=== PATIENT | female | born 1955 | race Caucasian/White ===

== ENCOUNTER → 2016-10-11 | Outpatient (CLI) | payer BC ==
[2016-10-11 14:18] LABS: Non-African American GFR(MDRD) >60 (>60 ml/min/1.73 sqM)
== END | disposition home or self-care (01) ==
LOC: LABWHC1 13:39
PROVIDERS: ATTEND Psychiatry & Neurology Neurology
DX: I60.9 Nontraumatic subarachnoid hemorrhage, unspecified (principal); R41.3 Other amnesia; R51 Headache
CPT/HCPCS: 36415; 82565

== ENCOUNTER → 2016-10-18 | Outpatient (CLI) | payer BC ==
--- NOTE | 2016-10-18 08:46 | MR ---
EXAMINATION TYPE: MR brain wo/w con DATE OF EXAM: 10/18/2016 7:41 AM COMPARISON: NONE at this institution. HISTORY: Subarachnoid hemorrhage follow-up, cluster headache, and memory loss all per order. Headache after head trauma per patient. TECHNIQUE: Multiplanar, multisequence images of the brain and brainstem is performed without and with IV contras t, utilizing 15 mL intravenous MultiHance . FINDINGS: Exam is slightly suboptimal as posttraumatic protocol was not utilized. Diffusion weighted images demonstrate no evidence of a recent infarct or other diffusion abnormality. There is no worri some extra-axial fluid collection. The ventricular system and cisternal spaces are normal in size an d appearance. The brain volume is age appropriate. There are some scattered foci of T2 hyperintensit y seen throughout the white matter bilaterally. I estimates 6-9 scattered lesions. Lesions are nonspe cific in appearance and distribution but are most likely on basis of product of chronic small vessel ischemic change in patient of this age. Midline structures demonstrate normal morphology. The craniocervical junction appears within normal limits. Post contrast images demonstrate no abnormal enhancement. The dural venous sinuses appear pa tent. The visualized sinuses are clear and the globes are intact. IMPRESSION: Mild nonspecific white matter changes most likely on basis of product of chronic small ve ssel ischemic change in patient of this age otherwise unremarkable study.
== END | disposition home or self-care (01) ==
LOC: RADMRIMAIN 06:59
PROVIDERS: ATTEND Psychiatry & Neurology Neurology
DX: S06.6X9D Traumatic subarachnoid hemorrhage with loss of consciousness of unspecified duration, subsequent encounter (principal); R90.82 White matter disease, unspecified
CPT/HCPCS: 70553; A9577

== ENCOUNTER → 2016-11-02 | Outpatient (CLI) | payer BC ==
--- NOTE | 2016-11-02 13:55 | XR ---
EXAMINATION TYPE: XR chest 2V DATE OF EXAM: 11/02/2016 10:06 AM COMPARISON: Prior chest x-ray 02 Mar 2016 HISTORY: Shortness of breath TECHNIQUE: Frontal and lateral views of the chest are obtained. FINDINGS: Retrocardiac density with lucency is compatible with hiatal hernia. Surgical clips are pre sent in the right upper quadrant. Right hemidiaphragm is elevated. No pneumothorax or pleural effusio n. Increased AP diameter chest may be indicative of underlying COPD. Cardiomediastinal silhouette, pu lmonary vascularity and gary are stable. IMPRESSION: No significant interval change. No acute abnormality.
== END | disposition home or self-care (01) ==
LOC: RADXRMAIN 09:42
PROVIDERS: ATTEND Family Medicine
DX: R06.02 Shortness of breath (principal)
CPT/HCPCS: 71020

== ENCOUNTER → 2019-05-14 | Outpatient (CLI) | payer BC ==
--- NOTE | 2019-05-14 13:27 | MM ---
Reason for exam: screening (asymptomatic). Last mammogram was performed 3 years and 8 months ago. History: Patient is postmenopausal. Family history of breast cancer in aunt at age 60 and breast cancer in mother at age 60. Benign excisional biopsy of the right breast, 1989. Physical Findings: A clinical breast exam by your physician is recommended on an annual basis and results should be correlated with mammographic findings. MG 3D Screening Mammo W/Cad Bilateral CC and MLO view(s) were taken. Prior study comparison: September 19, 2015, right breast MG 3d diag mammo w/cad RT. March 16, 2015, right breast MG work up mamm w CAD RT. The breast tissue is heterogeneously dense. This may lower the sensitivity of mammography. There is chronic nodularity bilaterally. There is no discrete abnormality. ASSESSMENT: Benign, BI-RAD 2 RECOMMENDATION: Routine screening mammogram of both breasts in 1 year.
== END | disposition home or self-care (01) ==
LOC: RADMAMWWP 07:44
PROVIDERS: ATTEND Family Medicine
DX: Z12.31 Encounter for screening mammogram for malignant neoplasm of breast (principal)
CPT/HCPCS: 77063; 77067

== ENCOUNTER 2020-12-07 17:52 | Emergency (ER) | payer BC, MEDICARE ==
[2020-12-07 17:57] VITALS: PULSE 71; RESP 18; TEMP 98.6
[2020-12-07] MEDS ORDERED: ACETAMINOPHEN TAB 325 MG TAB PO STA (18:04)
--- NOTE | 2020-12-07 18:23 | ED ---
General Adult HPI - General Chief complaint: Fall Stated complaint: Fall Time Seen by Provider: 12/07/20 17:58 Source: patient Mode of arrival: ambulatory Limitations: no limitations - History of Present Illness Initial comments: 65-year-old female patient presents to the emergency department today for evaluation of right knee pain. Patient states earlier she slipped and fell landing on the knee. States that she had some mild discomfort and stiffness initially but as the day wore on her symptoms worsened. States that she is able to bear weight and bili but it is painful. She takes ibuprofen a couple of hours ago was not really helpful. She denies hitting her head or losing consciousness with the fall. Denies any other injuries. She denies use of anticoagulant or antiplatelet medications. Patient denies any headache, neck pain, back pain, chest pain, shortness of breath, dizziness, weakness, abdominal pain, nausea, vomiting, or difficulties with bowel movements or urination. - Related Data Home Medications Medication Instructions Recorded Confirmed Citalopram Hydrobromide 20 mg PO QAM 05/10/15 04/24/16 [Citalopram HBr] Omeprazole 40 mg PO QAM 05/10/15 04/24/16 Aspirin [Adult Low Dose Aspirin EC] 81 mg PO QAM 04/18/16 04/24/16 Atorvastatin [Lipitor] 40 mg PO QAM 04/18/16 04/24/16 Levothyroxine Sodium [Synthroid] 100 mcg PO QAM 04/18/16 04/24/16 amLODIPine [Norvasc] 5 mg PO QAM 04/18/16 04/24/16 Ibuprofen [Motrin] 800 mg PO RT-Q8H PRN 04/24/16 04/24/16 Allergies Allergy/AdvReac Type Severity Reaction Status Date / Time sulfamethoxazole Allergy Itching Verified 12/07/20 17:57 [From Bactrim] trimethoprim [From Bactrim] Allergy Itching Verified 12/07/20 17:57 Review of Systems ROS Statement: Those systems with pertinent positive or pertinent negative responses have been documented in the HPI. ROS Other: All systems not noted in ROS Statement are negative. Past Medical History Past Medical History: GERD/Reflux, Thyroid Disorder History of Any Multi-Drug Resistant Organisms: None Reported Past Surgical History: Cholecystectomy Past Anesthesia/Blood Transfusion Reactions: Postoperative Nausea & Vomiting (PONV) Past Psychological History: Anxiety Smoking Status: Former smoker Past Alcohol Use History: Occasional Past Drug Use History: None Reported General Exam Limitations: no limitations General appearance: alert, in no apparent distress, other (This is a well- developed, well-nourished adult female patient in no acute distress. Vital signs upon presentation are temperature 98.6F, pulse 71, respirations 18, blood pressure 163/81, pulse ox 100% on room air.) ENT exam: Present: normal exam, normal oropharynx, mucous membranes moist Neck exam: Present: normal inspection, full ROM, other (Nontender, no step-off, no deformity to firm midline palpation of the posterior cervical spine. Full range of motion without pain or limitation.). Absent: tenderness, meningismus, lymphadenopathy Respiratory exam: Present: normal lung sounds bilaterally. Absent: respiratory distress, wheezes, rales, rhonchi, stridor Cardiovascular Exam: Present: regular rate, normal rhythm, normal heart sounds. Absent: systolic murmur, diastolic murmur, rubs, gallop, clicks Extremities exam: Present: full ROM, tenderness (Right anteromedial knee), normal capillary refill, other (There is soft tissue swelling and ecchymosis over the right anterior medial knee. She does exhibit full flexion and extension. Skin is otherwise pink, warm, dry. Cap refill less than 3 seconds. Pedal and posttibial pulses are 2+ and equal bilaterally. No increased pain or laxity with valgus or ). Absent: normal inspection, pedal edema, joint swelling, calf tenderness Back exam: Present: normal inspection. Absent: vertebral tenderness Neurological exam: Present: alert, oriented X3, CN II-XII intact Psychiatric exam: Present: normal affect, normal mood Skin exam: Present: warm, dry, intact, normal color. Absent: rash Course Vital Signs 12/07/20 12/07/20 17:53 18:49 Temperature 98.6 F Pulse Rate 71 71 Respiratory 18 18 Rate Blood Pressure 163/81 147/68 O2 Sat by Pulse 100 97 Oximetry Medical Decision Making - Medical Decision Making 65-year-old female patient presented to the emergency department today for evaluation of right knee pain after soap and fall injury. Physical examination did reveal a contusion to the anterior medial knee. Patient did exhibit full range of motion and extension. No pain or laxity with valgus or varus maneuvers. X-ray was obtained and showed no evidence of fracture or effusion. She did have moderate osteoarthritis. Patient was placed in an Gregg wrap. Did discuss contusion as cause for her symptoms. She is educated regarding rest, ice, elevation. She is instructed to follow-up through primary care physician for recheck in 1-2 days. She is instructed to have repeat x-rays performed in 7-10 days if pain symptoms persist. Return parameters were discussed in detail. She verbalizes understanding and agrees with this plan. Case discussed with my attending Dr. Robledo - Radiology Data Radiology results: report reviewed, image reviewed 3 views of the right knee are obtained. Report was reviewed in its entirety. Impression by Dr. Bains shows moderately severe osteoarthritis in the medial joint space. No fracture seen. Disposition Clinical Impression: Contusion of right knee Disposition: HOME SELF-CARE Condition: Good Instructions (If sedation given, give patient instructions): Contusion in Adults (ED) Additional Instructions: Rest, ice, elevate the right leg. Apply ice 20 minutes at a time at least 4 times daily. Use Gregg wrap for comfort and support. Follow-up with your primary care physician for recheck in 1-2 days. Have repeat x-rays performed in 7-10 days if pain symptoms persist. Return to the emergency department for any new, worsening, or concerning symptoms. Is patient prescribed a controlled substance at d/c from ED?: No Referrals: Melina Rene MD [Primary Care Provider] - 1-2 days Time of Disposition: 18:48
--- NOTE | 2020-12-07 18:31 | XR ---
EXAMINATION TYPE: XR knee complete RT DATE OF EXAM: 12/07/2020 COMPARISON: NONE HISTORY: Slip and fall. Pain. TECHNIQUE: 3 views FINDINGS: There is moderate narrowing of the medial joint space. I see no fracture nor dislocation. T here is a small knee joint effusion. There is no varus deformity. IMPRESSION: Moderately severe osteoarthritis in the medial joint space. No fracture seen.
[2020-12-07 18:50] VITALS: BP 147/68
== END 2020-12-07 18:57 | disposition home or self-care (01) ==
LOC: EC 17:52
DX: S80.01XA Contusion of right knee, initial encounter (principal); K21.9 Gastro-esophageal reflux disease without esophagitis; Z79.1 Long term (current) use of non-steroidal anti-inflammatories (NSAID); F41.9 Anxiety disorder, unspecified; Z87.891 Personal history of nicotine dependence; Z79.82 Long term (current) use of aspirin; Z79.899 Other long term (current) drug therapy; W01.0XXA Fall on same level from slipping, tripping and stumbling without subsequent striking against object, initial encounter
CPT/HCPCS: 99283

== ENCOUNTER 2022-01-09 10:42 | Observation (INO) | payer BC, MEDICARE ==
[2022-01-09] MEDS ORDERED: ASPIRIN 81 MG PO STA (10:57)
--- NOTE | 2022-01-09 11:00 | ED ---
Chest Pain HPI - General Chief Complaint: Chest Pain Stated Complaint: chest pain Time Seen by Provider: 01/09/22 10:53 Source: patient, RN notes reviewed Mode of arrival: ambulatory Limitations: no limitations - History of Present Illness Initial Comments: This a 66-year-old female presents emergency Department with chief complaint chest pain. Patient states this started yesterday afternoon. Patient states it's centralized chest pain states it feels tightness in her chest. She states that it was initially worse with exertion but states that she's having pain at rest. Patient denies any prior cardiac issues including ND, stents. Patient does admit that she had an hyperlipidemia at one point. She does not take any current medications for. Denies hypertension diabetes. Patient had no prior lung disease denies any vomiting diarrhea fever chills. No leg pain or leg swelling. - Related Data Home Medications Medication Instructions Recorded Confirmed Citalopram Hydrobromide 30 mg PO DAILY 05/10/15 01/09/22 [Citalopram HBr] Levothyroxine Sodium [Synthroid] 100 mcg PO MOTUWETHFRSA 04/18/16 01/09/22 Ferrous Sulfate [Feosol] 325 mg PO DAILY 01/09/22 01/09/22 Pantoprazole [Protonix] 40 mg PO DAILY 01/09/22 01/09/22 Allergies Allergy/AdvReac Type Severity Reaction Status Date / Time sulfamethoxazole Allergy Itching Verified 01/09/22 11:07 [From Bactrim] trimethoprim [From Bactrim] Allergy Itching Verified 01/09/22 11:07 Review of Systems ROS Statement: Those systems with pertinent positive or pertinent negative responses have been documented in the HPI. ROS Other: All systems not noted in ROS Statement are negative. Past Medical History Past Medical History: GERD/Reflux, Thyroid Disorder History of Any Multi-Drug Resistant Organisms: None Reported Past Surgical History: Cholecystectomy Past Anesthesia/Blood Transfusion Reactions: Postoperative Nausea & Vomiting (PONV) Past Psychological History: Anxiety Smoking Status: Former smoker Past Alcohol Use History: Occasional Past Drug Use History: None Reported General Exam Limitations: no limitations General appearance: alert, in no apparent distress Head exam: Present: atraumatic, normocephalic, normal inspection Eye exam: Present: normal appearance, PERRL, EOMI. Absent: scleral icterus, conjunctival injection, periorbital swelling ENT exam: Present: normal exam, mucous membranes moist Neck exam: Present: normal inspection, full ROM. Absent: tenderness, meningismus, lymphadenopathy Respiratory exam: Present: normal lung sounds bilaterally. Absent: respiratory distress, wheezes, rales, rhonchi, stridor Cardiovascular Exam: Present: regular rate, normal rhythm, normal heart sounds. Absent: systolic murmur, diastolic murmur, rubs, gallop, clicks GI/Abdominal exam: Present: soft, normal bowel sounds. Absent: distended, tenderness, guarding, rebound, rigid Neurological exam: Present: alert, oriented X3 Skin exam: Present: warm, dry, intact, normal color. Absent: rash Course Vital Signs 01/09/22 01/09/22 10:46 11:48 Temperature 98 F Pulse Rate 82 81 Respiratory 20 16 Rate Blood Pressure 145/78 133/77 O2 Sat by Pulse 97 96 Oximetry Chest Pain MDM - MDM 66 show presented for chest discomfort that started yesterday. Patient had persistent pain. Patient's troponin is negative this time though she has very concerning symptoms. Patient will be admitted for cardiac rule out including echocardiogram, cardiology evaluation Disposition Clinical Impression: Chest pain Disposition: ADMITTED IP TO THIS HOSP Condition: Fair Referrals: None,Stated [Primary Care Provider] - 1-2 days
[2022-01-09 11:19] LABS: Anisocytosis Slight; Basophils % (A) 0 %; Eosinophils # (A) 0.2 k/uL (0-0.7); Eosinophils % (A) 2 %; HGB 10.6 gm/dL (11.4-16.0); Hypochromasia Marked; Lymphocytes # (A) 0.7 k/uL (1.0-4.8); Lymphocytes % (A) 8 %; MCH 19.4 pg (25.0-35.0); MCHC 28.7 g/dL (31.0-37.0); MCV 67.5 fL (80.0-100.0); Mean Platelet Volume 8.1; Microcytosis Marked; Monocytes # (A) 0.3 k/uL (0-1.0); Monocytes % (A) 3 %; Neutrophils # (A) 7.8 k/uL (1.3-7.7); Neutrophils % (A) 86 %; Platelet Count 390 k/uL (150-450); Poikilocytosis Slight; RBC 5.48 m/uL (3.80-5.40); RDW 16.9 % (11.5-15.5)
--- NOTE | 2022-01-09 11:25 | XR ---
EXAMINATION TYPE: XR chest 2V DATE OF EXAM: 01/09/2022 COMPARISON: Chest x-ray 11/02/2016 HISTORY: Chest pain TECHNIQUE: Frontal and lateral views of the chest are obtained. FINDINGS: There is no pleural effusion or pneumothorax seen. Questionable nodular density present in the right upper lobe The cardiac silhouette size is stable. Surgical clips are present in the right upper quadrant. Interstitium is increased. Retrocardiac density with associated lucency likely repres ents hiatal hernia with partial intrathoracic stomach. The osseous structures are intact, as there i s thoracic spondylosis, superior endplate depression noted in the lumbar spine. Surgical clips are pr esent in the right upper quadrant. The aorta is dense. There is elevation of right hemidiaphragm as o n prior. Patient is rotated. IMPRESSION: Possible right upper lobe nodule, follow-up recommended, there is hiatal hernia with par tial intrathoracic stomach. Difficult to exclude interstitial lung disease, additional edema, correla te. There may be some compression fractures lumbar spine.
[2022-01-09 11:33] LABS: Partial Thromboplastin Time 23.5 sec (22.0-30.0)
[2022-01-09 11:43] LABS: ALT 12 U/L (4-34); AST 24 U/L (14-36); African American GFR (CKD) >90 (>60 ml/min/1.73 sqM); Albumin 3.7 g/dL (3.5-5.0); Alkaline Phosphatase 90 U/L (38-126); Anion Gap 6 mmol/L; Blood Urea Nitrogen 5 mg/dL (7-17); Calcium 8.6 mg/dL (8.4-10.2); Carbon Dioxide 32 mmol/L (22-30); Chloride 102 mmol/L (98-107); Glucose 113 mg/dL (74-99); Magnesium 1.8 mg/dL (1.6-2.3); Non-African American GFR(CKD) 86 (>60 ml/min/1.73 sqM); Potassium 3.8 mmol/L (3.5-5.1); Sodium 140 mmol/L (137-145); Total Bilirubin 0.5 mg/dL (0.2-1.3); Total Protein 7.3 g/dL (6.3-8.2)
[2022-01-09 11:59] LABS: INR 1.1 (<1.2); Prothrombin Time 11.3 sec (9.0-12.0)
[2022-01-09] MEDS ORDERED: NITROGLYCERIN SL TABS 0.4 MG TAB SUBLINGUAL PRN (12:54)
[2022-01-09] MEDS: LEVOTHYROXINE 100 MCG TAB PO SCH (13:41)
--- NOTE | 2022-01-09 13:49 | P.HPIM ---
History of Present Illness H&P Date: 01/09/22 History of Presenting Illness: Patient is a very pleasant 66-year-old female with a past medical history of hypothyroidism, GERD, and anxiety. She presented to the emergency department with a chief complaint of chest pain. Patient reports she has been experiencing intermittent chest pain since yesterday. She describes this pain to her mid sternal chest as a "pounding-like" sensation and denies any radiation of this pain. Patient reports this pain has came on with exertion with the initial time she noticed it being just after walking up her basement steps but also states that it has came on at rest as she reports last night she was lying in bed and again felt this pain. Patient states today she felt the pain for a third time Lucy L she was doing was walking around her house. Patient states that her daughter became very concerned and wanted her to come to the emergency department for evaluation. Patient states in addition to this pain she has noticed that she has been having shortness of breath with exertion over the past week and also reports feeling palpitations and lightheadedness when she feels this pain. She denies having any headache, shortness of breath at rest, abdominal pain, nausea, vomiting, diaphoresis, fevers, or experiencing any numbness/tingling/weakness/swelling in her extremities. Patient denies having a cardiac history and denies family history of sudden cardiac . In the emergency department patient was seen and fully evaluated. EKG was completed revealing sinus rhythm at 73 bpm with occasional PVCs and an incomplete right bundle branch block. Chest x-ray revealing possible right upper lobe nodule, hiatal hernia with partial intrathoracic stomach, with possible compression fractures of lumbar spine. Labs revealing microcytic microchromic anemia with hemoglobin of 10.6, currently at baseline and elevated bicarb of 32. Troponin negative at less than 0.012. Patient has been admitted under our services with consultation to cardiology and general surgery. Review of systems: Pertinent positives and negatives as discussed in HPI, a complete review of systems was performed and all other systems are negative. Physical exam: Vital signs reviewed and stable. General: Nontoxic, no distress and appears stated age. Derm: Skin warm and dry, normal coloration for ethnicity. Head: Atraumatic, normocephalic and symmetric. Eyes: EOMs intact, no lid lag, and anicteric sclera Mouth: no lip lesions, mucus membranes moist Cardiovascular: regular rate and rhythm with normal S1S2, systolic murmur, positive posterior tibial pulses bilaterally, and cap refill < 2 seconds. Lungs: Respirations even, regular, and unlabored on room air. Lungs CTA bilaterally, no rhonchi, no rales, no wheezing, and no accessory muscle usage. Abdominal: soft, nontender to palpation, no guarding, no appreciable organomegaly Ext: ROM intact. No gross muscle atrophy, no edema, no contractures Neuro: Speech clear, face symmetrical and CN II-XII grossly intact with no noted focal neuro deficits Psych: Alert and oriented to person, place, time, and situation. Appropriate and pleasant affect. Assessment and Plan of Care: Atypical Chest pain, rule out acute coronary event -Cardiology consult, appreciate further recommendations -Gen. surgery consulted secondary to findings of hiatal hernia with partial intrathoracic stomach -Telemetry monitoring -Trend troponins -Cardiac diet, NPO at midnight -Lipid profile with a.m. labs. -Echocardiogram Hypothyroidism -Continue daily medication regimen with level thyroxine GERD -Continue daily medication regimen with Protonix Depression and anxiety -Continue daily medication regimen with Celexa 30 mg each morning. The patient is admitted with an anticipated less than 2 midnight stay for evaluation of chest pain CODE STATUS: Full code DVT prophylaxis: Heparin Discussed with: Patient, patient's daughter, and RN Anticipated discharge date: 1-[address]: Home A total of 40 minutes was spent on the care of this complex patient more than 50% of the time was spent in counseling and care coordination. Past Medical History Past Medical History: GERD/Reflux, Thyroid Disorder History of Any Multi-Drug Resistant Organisms: None Reported Past Surgical History: Cholecystectomy Past Anesthesia/Blood Transfusion Reactions: Postoperative Nausea & Vomiting (PONV) Past Psychological History: Anxiety Smoking Status: Former smoker Past Alcohol Use History: Occasional Past Drug Use History: None Reported Medications and Allergies Home Medications Medication Instructions Recorded Confirmed Type Citalopram Hydrobromide 30 mg PO DAILY 05/10/15 01/09/22 History [Citalopram HBr] Levothyroxine Sodium [Synthroid] 100 mcg PO MOTUWETHFRSA 04/18/16 01/09/22 History Ferrous Sulfate [Feosol] 325 mg PO DAILY 01/09/22 01/09/22 History Pantoprazole [Protonix] 40 mg PO DAILY 01/09/22 01/09/22 History Allergies Allergy/AdvReac Type Severity Reaction Status Date / Time sulfamethoxazole Allergy Itching Verified 01/09/22 11:07 [From Bactrim] trimethoprim [From Bactrim] Allergy Itching Verified 01/09/22 11:07 Physical Exam Vitals: Vital Signs Temp Pulse Resp BP Pulse Ox 01/09/22 11:48 81 16 133/77 96 01/09/22 10:46 98 F 82 20 145/78 97 Intake and Output 01/08/22 01/09/22 01/09/22 22:59 06:59 14:59 Other: Weight 68.039 kg Results CBC & Chem 7: 01/09/22 11:09 01/09/22 11:09 Labs: Abnormal Lab Results - Last 24 Hours (Table) 01/09/22 01/09/22 Range/Units 11:09 11:09 RBC 5.48 H (3.80-5.40) m/uL Hgb 10.6 L (11.4-16.0) gm/dL MCV 67.5 L (80.0-100.0) fL MCH 19.4 L (25.0-35.0) pg MCHC 28.7 L (31.0-37.0) g/dL RDW 16.9 H (11.5-15.5) % Neutrophils # 7.8 H (1.3-7.7) k/uL Lymphocytes # 0.7 L (1.0-4.8) k/uL Carbon Dioxide 32 H (22-30) mmol/L BUN 5 L (7-17) mg/dL Glucose 113 H (74-99) mg/dL
--- NOTE | 2022-01-09 14:46 | P.CRDCN ---
History of Present Illness Consult date: 01/09/22 History of present illness: HISTORY OF PRESENT ILLNESS: This is a 66 year old female with a past medical history significant for anxiety, hypothyroidism, and GERD. Patient follows in the office with Dr. Caceres. We have been asked to see the patient in consultation for chest pain. Patient examined at the bedside. Patient states over the past week she has been feeling short of breath. She states yesterday she began having some chest pressure. The pain is located in the middle of her chest. She denied any radiation of the pain. She states the discomfort would last for about 5 or 10 minutes and then go away on its own. She states she had approximately 3 or 4 episodes of chest pressure since yesterday morning. She reports having this discomfort with exertion and also at rest. She denies any increased pain with deep inspiration. She denies discomfort with chest wall palpation. At the time of my examination, the patient denies any chest pain or pressure. * EKG reveals sinus mechanism with incomplete right bundle branch block * Chest xray possible right upper lobe nodule. Follow-up recommended. Hiatal hernia with partial intrathoracic stomach. Difficult to exclude interstitial lung disease. * Laboratory data: WBC 9.0. Hemoglobin 10.6. Platelet count 390. Sodium 140. Potassium 3.8. BUN 5. Creatinine 0.73. Troponin negative 1. * Current home cardiac medications include none * Most recent echocardiogram obtained in November 2020 revealed ejection fraction 55%, moderate aortic stenosis, mild MR, mild TR * Patient underwent stress echo in November 2020 which was negative for ischemia * Cardiac catheterization history: 2016 revealing normal coronary arteries and normal left ventricular size and systolic function REVIEW OF SYSTEMS: At the time of my exam: CONSTITUTIONAL: Denies fever or chills. HEENT: Denies blurred vision, vision changes, or eye pain. Denies hemoptysis CARDIOVASCULAR: Denies chest pain. Denies orthopnea. Denies PND. Denies palpitations RESPIRATORY: Denies shortness of breath. GASTROINTESTINAL: Denies abdominal pain. Denies nausea or vomiting. HEMATOLOGIC: Denies bleeding disorders. GENITOURINARY: Denies any blood in urine. SKIN: Denies pruitis. Denies rash. PHYSICAL EXAM: VITAL SIGNS: Reviewed. GENERAL: Well-developed in no acute distress. HEENT: Head is normocephalic. Pupils are equal, round. Sclerae anicteric. Mucous membranes of the mouth are moist. Neck supple. No JVD or thyromegaly LUNGS: Respirations even and unlabored. Lungs essentially clear to auscultation bilaterally. HEART: Regular rate and rhythm. S1 and S2 heard. Systolic murmur noted. ABDOMEN: Soft. Nondistended. Nontender. EXTREMITIES: Normal range of motion. No clubbing or cyanosis. Peripheral pulses intact. No lower extremity edema NEUROLOGIC: Awake and alert. Oriented x 3. ASSESSMENT: Chest pain Valvular heart disease Anxiety Hypothyroidism GERD PLAN: Obtain 2-D echo to assess chronic structure and function Trend troponins NPO at midnight Further recommendations pending patient's course Nurse practitioner note has been reviewed by physician. Signing provider agrees with the documented findings, assessment, and plan of care. Past Medical History Past Medical History: GERD/Reflux, Thyroid Disorder History of Any Multi-Drug Resistant Organisms: None Reported Past Surgical History: Cholecystectomy Past Anesthesia/Blood Transfusion Reactions: Postoperative Nausea & Vomiting (PONV) Past Psychological History: Anxiety Smoking Status: Former smoker Past Alcohol Use History: Occasional Past Drug Use History: None Reported Medications and Allergies Home Medications Medication Instructions Recorded Confirmed Type Citalopram Hydrobromide 30 mg PO DAILY 05/10/15 01/09/22 History [Citalopram HBr] Levothyroxine Sodium [Synthroid] 100 mcg PO MOTUWETHFRSA 04/18/16 01/09/22 History Ferrous Sulfate [Feosol] 325 mg PO DAILY 01/09/22 01/09/22 History Pantoprazole [Protonix] 40 mg PO DAILY 01/09/22 01/09/22 History Allergies Allergy/AdvReac Type Severity Reaction Status Date / Time sulfamethoxazole Allergy Itching Verified 01/09/22 11:07 [From Bactrim] trimethoprim [From Bactrim] Allergy Itching Verified 01/09/22 11:07 Physical Exam Vitals: Vital Signs Temp Pulse Resp BP Pulse Ox 01/09/22 11:48 81 16 133/77 96 01/09/22 10:46 98 F 82 20 145/78 97 Intake and Output 01/08/22 01/09/22 01/09/22 22:59 06:59 14:59 Other: Weight 68.039 kg Results 01/09/22 11:09 01/09/22 11:09 Cardiac Enzymes 01/09/22 01/09/22 Range/Units 11:09 11:09 AST 24 (14-36) U/L Troponin I <0.012 (0.000-0.034) ng/mL Coagulation 01/09/22 Range/Units 11:09 PT 11.3 (9.0-12.0) sec APTT 23.5 (22.0-30.0) sec CBC 01/09/22 Range/Units 11:09 WBC 9.0 (3.8-10.6) k/uL RBC 5.48 H (3.80-5.40) m/uL Hgb 10.6 L (11.4-16.0) gm/dL Hct 37.0 (34.0-46.0) % Plt Count 390 (150-450) k/uL Comprehensive Metabolic Panel 01/09/22 Range/Units 11:09 Sodium 140 (137-145) mmol/L Potassium 3.8 (3.5-5.1) mmol/L Chloride 102 (98-107) mmol/L Carbon Dioxide 32 H (22-30) mmol/L BUN 5 L (7-17) mg/dL Creatinine 0.73 (0.52-1.04) mg/dL Glucose 113 H (74-99) mg/dL Calcium 8.6 (8.4-10.2) mg/dL AST 24 (14-36) U/L ALT 12 (4-34) U/L Alkaline Phosphatase 90 (38-126) U/L Total Protein 7.3 (6.3-8.2) g/dL Albumin 3.7 (3.5-5.0) g/dL Current Medications Generic Name Dose Route Start Last Admin Trade Name Freq PRN Reason Stop Dose Admin Aspirin 325 mg 01/10/22 09:00 Aspirin 325 Mg Tab PO DAILY RHETT Citalopram Hydrobromide 30 mg 01/10/22 09:00 Citalopram Hydrobromide 10 Mg Tab PO DAILY RHETT Ferrous Sulfate 325 mg 01/10/22 09:00 Ferrous Sulfate 325 Mg Tab PO DAILY RHETT Levothyroxine Sodium 100 mcg 01/09/22 13:00 Levothyroxine 100 Mcg Tab PO [id number] RHETT Nitroglycerin 0.4 mg 01/09/22 12:54 Nitroglycerin Sl Tabs 0.4 Mg Tab SUBLINGUAL Q5M PRN Chest Pain Pantoprazole Sodium 40 mg 01/10/22 07:30 Pantoprazole 40 Mg Tablet PO [id number] RHETT Intake and Output 01/08/22 01/09/22 01/09/22 22:59 06:59 14:59 Other: Weight 68.039 kg Patient Weight 01/10/22 06:59 Weight 68.039 kg 01/09/22 11:09 01/09/22 11:09
--- NOTE | 2022-01-09 19:13 | ECHOF ---
Referral Reason: MEASUREMENTS -------- HEIGHT: 152.4 cm WEIGHT: 68.0 kg BP: 133/63 RVIDd: 2.4 cm (< 3.3) IVSd: 1.1 cm (0.6 - 1.1) LVIDd: 4.4 cm (3.9 - 5.3) LVPWd: 1.5 cm (0.6 - 1.1) IVSs: 1.5 cm LVIDs: 3.1 cm LVPWs: 1.5 cm LAESV Index (A-L): 42.73 ml/m Ao Diam: 2.9 cm (2.0 - 3.7) AV Cusp: 1.3 cm (1.5 - 2.6) LA Diam: 3.4 cm (2.7 - 3.8) MV EXCURSION: 17.802 mm (> 18.000) MV EF SLOPE: 99 mm/s (70 - 150) EPSS: 1.1 cm MV E Jerrell: 1.00 m/s MV DecT: 172 ms MV A Jerrell: 0.73 m/s MV E/A Ratio: 1.37 AV maxP.51 mmHg AV meanP.78 mmHg AR PHT: 380 ms RAP: 5.00 mmHg RVSP: 39.83 mmHg FINDINGS -------- Sinus rhythm. This was a technically adequate study. The left ventricular size is normal. There is borderline concentric left ventricular hypertrophy. Overall left ventricular systolic function is normal with, an EF between 55 - 60 %. The diastolic filling pattern indicates impaired relaxation 21.28. The right ventricle is normal in size. LA is severely dilated >40 ml/m2 The right atrial size is normal. Interatrial and interventricular septum intact. Aortic valve is trileaflet and is mildly thickened. Trace amount of aortic regurgitation. There is mild aortic stenosis present. The maximum velocity across the aortic valve is 2.72m/s. Peak/me an gradient across the Aortic Valve is 29.51mmHg / 14.78mmHg. The mitral valve leaflets are mildly thickened. Mild mitral regurgitation is present. The tricuspid valve appears structurally normal. Mild tricuspid regurgitation present. There is m ild pulmonary hypertension. The right ventricular systolic pressure, as measured by Doppler, is 39. 83mmHg. Trace/mild (physiologic) pulmonic regurgitation. The aortic root size is normal. IVC Not well visulized. There is no pericardial effusion. CONCLUSIONS -------- 1. There is borderline concentric left ventricular hypertrophy. 2. Overall left ventricular systolic function is normal with, an EF between 55 - 60 %. 3. The diastolic filling pattern indicates impaired relaxation 21.28.. 4. LA is severely dilated >40 ml/m2 5. Trace amount of aortic regurgitation. 6. There is mild aortic stenosis present. 7. Mild mitral regurgitation is present. 8. Mild tricuspid regurgitation present. 9. There is mild pulmonary hypertension. HAND WRAPPER OPERATOR: Zena Maher RDCS
[2022-01-10] MEDS: HEPARIN SODIUM,PORCINE/PF 5,000 UNIT/0.5 ML SYRINGE SQ SCH ×3 (01:56→15:44)
[2022-01-10] MEDS: PANTOPRAZOLE 40 MG TABLET PO SCH (05:34)
[2022-01-10] MEDS: LEVOTHYROXINE 100 MCG TAB PO SCH (05:34)
[2022-01-10] MEDS ORDERED: ASPIRIN 325 MG TAB PO SCH (09:00)
[2022-01-10] MEDS: ASPIRIN 81 MG PO SCH (09:51)
[2022-01-10] MEDS: CITALOPRAM HYDROBROMIDE 10 MG TAB PO SCH (09:52)
[2022-01-10] MEDS: FERROUS SULFATE 325 MG TAB PO SCH (09:52)
[2022-01-10 10:03] LABS: Chol/HDL Ratio 3.53 Ratio; LDL Cholesterol,Calculated 89.1 mg/dL (0.0-131.0)
--- NOTE | 2022-01-10 12:47 | P.PN ---
Subjective This is a 66 year old female with a past medical history significant for anxiety, hypothyroidism, and GERD. Patient follows in the office with Dr. Jeramy mariscal. We have been asked to see the patient in consultation for chest pain. Patient examined at the bedside. Patient states over the past week she has been feeling short of breath. She states yesterday she began having some chest pressure. The pain is located in the middle of her chest. She denied any radiation of the pain. She states the discomfort would last for about 5 or 10 minutes and then go away on its own. She states she had approximately 3 or 4 episodes of chest pressure since yesterday morning. She reports having this discomfort with exertion and also at rest. She denies any increased pain with deep inspiration. She denies discomfort with chest wall palpation. * Patient underwent stress echo in November 2020 which was negative for ischemia * Cardiac catheterization history: 2015 revealing normal coronary arteries and normal left ventricular size and systolic function * EKG revealed sinus mechanism with incomplete right bundle branch block. * Chest xray possible right upper lobe nodule. Follow-up recommended. Hiatal hernia with partial intrathoracic stomach. Difficult to exclude interstitial lung disease. * Troponin negative x 3. * Echocardiogram revealed an EF 5560%, mild aortic stenosis, mild mitral regurgitation, mild tricuspid regurgitation 01/10/2022 Patient seen and examined, no acute distress. No chest pain. No shortness of breath. BP 130/60 HR 66, afebrile 97% on room air. Echocardiogram revealed an EF 5560%, mild aortic stenosis, mild mitral regurgitation, mild tricuspid regurgitation PHYSICAL EXAM: VITAL SIGNS: Reviewed. GENERAL: Well-developed in no acute distress. HEENT: Neck supple. No JVD LUNGS: Respirations even and unlabored. Lungs essentially clear to auscultation bilaterally. HEART: Regular rate and rhythm. S1 and S2 heard. Systolic murmur noted. ABDOMEN: Soft. Nondistended. Nontender. EXTREMITIES: Normal range of motion. No clubbing or cyanosis. Peripheral pulses intact. No lower extremity edema NEUROLOGIC: Awake and alert. Oriented x 3. ASSESSMENT: Chest pain, atypical, acute coronary syndrome has been ruled out Mild aortic stenosis Anxiety Hypothyroidism GERD PLAN: An acute coronary event has been ruled out with no EKG evidence of ischemia and negative cardiac enzymes. Perform Stress Echo test to assess for stress induced cardiac ischemia. If abnormal will consider coronary angiography. If stress test is normal, ok to discharge from a cardiology perspective. Nurse practitioner note has been reviewed by physician. Signing provider agrees with the documented findings, assessment, and plan of care. Objective - Vital Signs Vital signs: Vital Signs Temp 98.2 F 01/10/22 07:52 Pulse 65 01/10/22 08:00 Resp 16 01/10/22 07:52 BP 135/63 01/10/22 07:52 Pulse Ox 95 01/10/22 07:52 Intake & Output 01/09/22 01/10/22 01/10/22 18:59 06:59 18:59 Weight 68.039 kg 68.039 kg Other: Voiding Method Toilet - Labs CBC & Chem 7: 01/09/22 11:09 01/09/22 11:09 Labs: Abnormal Lab Results - Last 24 Hours (Table) 01/09/22 01/09/22 Range/Units 11:09 11:09 RBC 5.48 H (3.80-5.40) m/uL Hgb 10.6 L (11.4-16.0) gm/dL MCV 67.5 L (80.0-100.0) fL MCH 19.4 L (25.0-35.0) pg MCHC 28.7 L (31.0-37.0) g/dL RDW 16.9 H (11.5-15.5) % Neutrophils # 7.8 H (1.3-7.7) k/uL Lymphocytes # 0.7 L (1.0-4.8) k/uL Carbon Dioxide 32 H (22-30) mmol/L BUN 5 L (7-17) mg/dL Glucose 113 H (74-99) mg/dL
--- NOTE | 2022-01-10 13:13 | P.PN ---
Subjective Progress Note Date: 01/10/22 Hospital course: Patient is a very pleasant 66-year-old female with a past medical history of hypothyroidism, GERD, and anxiety. She presented to the emergency department on 01/09/22 with a chief complaint of chest pain. Patient reported she has been experiencing intermittent chest pain 2 days. She described this pain to her mid sternal chest as a "pounding-like" sensation and denied any radiation of this pain. Patient reported this pain came on with exertion with the initial time she noticed it being just after walking up her basement steps but also stated that it has also came on at rest as she reports last night she was lying in bed and again felt this pain. Patient reported that she then felt the pain for a third time as she was walking around her house and realized that something was going on. Patient stated that her daughter became very concerned and wanted her to come to the emergency department for evaluation. Patient also reported in addition to this pain she has noticed that she has been having shortness of breath with exertion over the past week and also reports feeling palpitations and lightheadedness when she feels this pain. Patient denies having a cardiac history and denies family history of sudden cardiac . In the emergency department patient was seen and fully evaluated. EKG was completed revealing sinus rhythm at 73 bpm with occasional PVCs and an incomplete right bundle branch block. Chest x-ray revealing possible right upper lobe nodule, hiatal hernia with partial intrathoracic stomach, with possible compression fractures of lumbar spine. Labs revealing microcytic microchromic anemia with hemoglobin of 10.6, currently at baseline and elevated bicarb of 32. Initial Troponin negative at less than 0.012. Patient was admitted under our services to observation unit with consultation to cardiology and general surgery. She was monitored overnight and troponins were trended all less than 0.0123 draws. Lipid profile unremarkable. Echocardiogram completed revealing an EF of 55-60% with a severely dilated left atrium, mild aortic stenosis, mild pulmonary hypertension, and mild mitral and tricuspid regurgitation. Cardiology evaluated and plans for stress echo to assess for stress-induced cardiac ischemia. General surgery evaluated and secondary to newly diagnosed hiatal hernia with intrathoracic stomach, pt has been transferred to inpatient and tentative plan is to have pt undergo EGD tomorrow morning with Dr. Davis for futher evaluation. Physical exam: Vital signs reviewed and stable. General: Nontoxic, no distress and appears stated age. Derm: Skin warm and dry, normal coloration for ethnicity. Head: Atraumatic, normocephalic and symmetric. Eyes: EOMs intact, no lid lag, and anicteric sclera Mouth: no lip lesions, mucus membranes moist Cardiovascular: regular rate and rhythm with normal S1S2, systolic murmur, positive posterior tibial pulses bilaterally, and cap refill < 2 seconds. Lungs: Respirations even, regular, and unlabored on room air. Lungs CTA bilaterally, no rhonchi, no rales, no wheezing, and no accessory muscle usage. Abdominal: soft, nontender to palpation, no guarding, no appreciable organomegaly Ext: ROM intact. No gross muscle atrophy, no edema, no contractures Neuro: Speech clear, face symmetrical and CN II-XII grossly intact with no noted focal neuro deficits Psych: Alert and oriented to person, place, time, and situation. Appropriate and pleasant affect. Assessment and Plan of Care: Atypical Chest pain, rule out acute coronary event -Cardiology consult, appreciate further recommendations -Gen. surgery consulted secondary to findings of hiatal hernia with partial intrathoracic stomach -Telemetry monitoring -Trend troponins -Cardiac diet, NPO at midnight -Lipid profile with a.m. labs. -Echocardiogram Hypothyroidism -Continue daily medication regimen with level thyroxine GERD -Continue daily medication regimen with Protonix Depression and anxiety -Continue daily medication regimen with Celexa 30 mg each morning. CODE STATUS: Full code DVT prophylaxis: Heparin Discussed with: Patient, patient's daughter, and RN Anticipated discharge date: Clinical course to determine Anticipated discharge place: Home A total of 37 minutes was spent on the care of this complex patient more than 50% of the time was spent in counseling and care coordination. Objective - Vital Signs Vital signs: Vital Signs Temp 98.2 F 01/10/22 07:52 Pulse 65 01/10/22 08:00 Resp 16 01/10/22 07:52 BP 135/63 01/10/22 07:52 Pulse Ox 95 01/10/22 07:52 Intake & Output 01/09/22 01/10/22 01/10/22 18:59 06:59 18:59 Weight 68.039 kg 68.039 kg Other: Voiding Method Toilet - Labs CBC & Chem 7: 01/09/22 11:09 01/09/22 11:09 Labs: Abnormal Lab Results - Last 24 Hours (Table) 01/09/22 01/09/22 Range/Units 11:09 11:09 RBC 5.48 H (3.80-5.40) m/uL Hgb 10.6 L (11.4-16.0) gm/dL MCV 67.5 L (80.0-100.0) fL MCH 19.4 L (25.0-35.0) pg MCHC 28.7 L (31.0-37.0) g/dL RDW 16.9 H (11.5-15.5) % Neutrophils # 7.8 H (1.3-7.7) k/uL Lymphocytes # 0.7 L (1.0-4.8) k/uL Carbon Dioxide 32 H (22-30) mmol/L BUN 5 L (7-17) mg/dL Glucose 113 H (74-99) mg/dL
--- NOTE | 2022-01-10 14:30 | ECHOS ---
STRESS ECHOCARDIOGRAM INDICATIONS: Chest pain BASELINE HEART RATE: 64 BASELINE BLOOD PRESSURE: 115/49 MAXIMUM HEART RATE: 136 MAXIMUM BLOOD PRESSURE: 185/58 85% MPHR: 131 100% MPHR: 154 METS: 6 MAXIMUM STAGE REACHED: II TOTAL EXERCISE TIME: 4:31 CLINICAL INFORMATION: Baseline rhythm is sinus mechanism, rate of 64, borderline left axis deviation, poor R- wave progression, first-degree AV block. Baseline blood pressure 115/49 mmHg. Patient exercised on Jason protocol for 4 minutes 31 seconds, reaching a peak rate of 130 beats per minute, which is equal to 88% of maximum predicted heart rate. Peak blood pressure 185/58 mmHg. Test was terminated secondary to fatigue. There was no chest pain. Electrocardiograph monitoring revealed no evidence of diagnostic ischemic ST deviation. FINDINGS: Baseline echocardiogram revealed normal wall thickness and motion. At peak exercise there was normal wall motion augmentation with no hypokinesis or dyskinesis. CONCLUSION: 1. Decreased exercise tolerance. 2. Normal electrocardiographic response to exercise. 3. Normal stress echocardiogram with no evidence of stress-induced ischemia. MMODL / IJN: [id number] /
--- NOTE | 2022-01-10 17:03 | P.GSCN ---
History of Present Illness Consult date: 01/10/22 Reason for Consult: Hiatal hernia, dysphagia, chest pain History of present illness: This is a 66-year-old female with complaints of some epigastric and chest pain. Patient's chest x-ray shows evidence of a intrathoracic stomach and hiatal he rnia. Patient describes history of some dysphagia and acid reflux. Past Medical History Past Medical History: GERD/Reflux, Thyroid Disorder History of Any Multi-Drug Resistant Organisms: None Reported Past Surgical History: Cholecystectomy Past Anesthesia/Blood Transfusion Reactions: Postoperative Nausea & Vomiting (PONV) Past Psychological History: Anxiety Smoking Status: Former smoker Past Alcohol Use History: Occasional Past Drug Use History: None Reported Medications and Allergies Home Medications Medication Instructions Recorded Confirmed Type Citalopram Hydrobromide 30 mg PO DAILY 05/10/15 01/09/22 History [Citalopram HBr] Levothyroxine Sodium [Synthroid] 100 mcg PO MOTUWETHFRSA 04/18/16 01/09/22 History Ferrous Sulfate [Feosol] 325 mg PO DAILY 01/09/22 01/09/22 History Pantoprazole [Protonix] 40 mg PO DAILY 01/09/22 01/09/22 History Allergies Allergy/AdvReac Type Severity Reaction Status Date / Time sulfamethoxazole Allergy Itching Verified 01/09/22 11:07 [From Bactrim] trimethoprim [From Bactrim] Allergy Itching Verified 01/09/22 11:07 Surgical - Exam Vital Signs Temp Pulse Resp BP Pulse Ox 98 F 82 20 145/78 97 01/09/22 10:46 01/09/22 10:46 01/09/22 10:46 01/09/22 10:46 01/09/22 10:46 - General well developed, well nourished, no distress - Eyes PERRL - ENT normal pinna - Neck no masses - Respiratory normal expansion - Cardiovascular Rhythm: regular - Abdomen Abdomen: soft, non tender Results - Labs 01/09/22 11:09 01/09/22 11:09 Diabetes panel 01/10/22 Range/Units 05:10 Triglycerides 124.00 (0.00-149.00) mg/dL HDL Cholesterol 45.10 (40.00-60.00) mg/dL Assessment and Plan Assessment: Hiatal hernia with partial intrathoracic stomach. Patient will undergo EGD in the a.m.
[2022-01-11] MEDS: HEPARIN SODIUM,PORCINE/PF 5,000 UNIT/0.5 ML SYRINGE SQ SCH ×3 (00:31→17:04)
[2022-01-11 06:11] VITALS: RESP 18
[2022-01-11] MEDS: PANTOPRAZOLE 40 MG TABLET PO SCH (06:11)
[2022-01-11] MEDS: LEVOTHYROXINE 100 MCG TAB PO SCH (06:12)
[2022-01-11] MEDS ORDERED: LACTATED RINGERS 1,000 ML IV SCH (06:51)
[2022-01-11] MEDS ORDERED: LIDOCAINE 1% (10MG/ML) FOR IV START INTRADERMA PRN (06:51)
[2022-01-11] MEDS: FERROUS SULFATE 325 MG TAB PO SCH (09:01)
[2022-01-11] MEDS: CITALOPRAM HYDROBROMIDE 10 MG TAB PO SCH (09:01)
[2022-01-11] MEDS: ASPIRIN 81 MG PO SCH (09:01)
[2022-01-11 11:23] VITALS: BP 115/56; TEMP 98.2
--- NOTE | 2022-01-11 13:04 | P.PN ---
Subjective Progress Note Date: 01/11/22 Hospital course: Patient is a very pleasant 66-year-old female with a past medical history of hypothyroidism, GERD, and anxiety. She presented to the emergency department on 01/09/22 with a chief complaint of chest pain. Patient reported she has been experiencing intermittent chest pain 2 days. She described this pain to her mid sternal chest as a "pounding-like" sensation and denied any radiation of this pain. Patient reported this pain came on with exertion with the initial time she noticed it being just after walking up her basement steps but also stated that it has also came on at rest as she reports last night she was lying in bed and again felt this pain. Patient reported that she then felt the pain for a third time as she was walking around her house and realized that something was going on. Patient stated that her daughter became very concerned and wanted her to come to the emergency department for evaluation. Patient also reported in addition to this pain she has noticed that she has been having shortness of breath with exertion over the past week and also reports feeling palpitations and lightheadedness when she feels this pain. Patient denies having a cardiac history and denies family history of sudden cardiac . In the emergency department patient was seen and fully evaluated. EKG was completed revealing sinus rhythm at 73 bpm with occasional PVCs and an incomplete right bundle branch block. Chest x-ray revealing possible right upper lobe nodule, hiatal hernia with partial intrathoracic stomach, with possible compression fractures of lumbar spine. Labs revealing microcytic microchromic anemia with hemoglobin of 10.6, currently at baseline and elevated bicarb of 32. Initial Troponin negative at less than 0.012. Patient was admitted under our services to observation unit with consultation to cardiology and general surgery. She was monitored overnight and troponins were trended all less than 0.0123 draws. Lipid profile unremarkable. Echocardiogram completed revealing an EF of 55-60% with a severely dilated left atrium, mild aortic stenosis, mild pulmonary hypertension, and mild mitral and tricuspid regurgitation. Cardiology evaluated and completed stress echo which was negative for stress-induced cardiac ischemia. General surgery evaluated and secondary to newly diagnosed hiatal hernia with intrathoracic stomach, pt was transferred to inpatient and tentative plan is for pt to undergo EGD this afternoon with Dr. Davis for futher evaluation. Physical exam: Patient seen and fully evaluated at bedside this morning. Patient reports she is currently free from any complaints denying any chest pain, palpitations, shortness of breath, or any other complaints at this time. Patient preparing to undergo EGD later this afternoon. Vital signs reviewed and stable. General: Nontoxic, no distress and appears stated age. Derm: Skin warm and dry, normal coloration for ethnicity. Head: Atraumatic, normocephalic and symmetric. Eyes: EOMs intact, no lid lag, and anicteric sclera Mouth: no lip lesions, mucus membranes moist Cardiovascular: regular rate and rhythm with normal S1S2, systolic murmur, positive posterior tibial pulses bilaterally, and cap refill < 2 seconds. Lungs: Respirations even, regular, and unlabored on room air. Lungs CTA bilaterally, no rhonchi, no rales, no wheezing, and no accessory muscle usage. Abdominal: soft, nontender to palpation, no guarding, no appreciable organomega ly Ext: ROM intact. No gross muscle atrophy, no edema, no contractures Neuro: Speech clear, face symmetrical and CN II-XII grossly intact with no noted focal neuro deficits Psych: Alert and oriented to person, place, time, and situation. Appropriate and pleasant affect. Assessment and Plan of Care: Atypical Chest pain, rule out acute coronary event -Cardiology consulted, stress test negative, ruled out acute coronary event -Gen. surgery consulted secondary to findings of hiatal hernia with partial intrathoracic stomach taking patient for EGD this afternoon -Telemetry monitoring -Troponins negative at less than 0.0123 draws -Nothing by mouth until completion of EGD and may resume cardiac diet once cleared by general surgery -Lipid profile unremarkable -Echocardiogram completed revealing an EF of 55-60% with a severely dilated left atrium, mild aortic stenosis, mild pulmonary hypertension, and mild mitral and tricuspid regurgitation. Hypothyroidism -Continue daily medication regimen with level thyroxine GERD -Continue daily medication regimen with Protonix Depression and anxiety -Continue daily medication regimen with Celexa 30 mg each morning. CODE STATUS: Full code DVT prophylaxis: Heparin Discussed with: Patient, patient's daughter, and RN Anticipated discharge date: Clinical course to determine Anticipated discharge place: Home A total of 35 minutes was spent on the care of this complex patient more than 50% of the time was spent in counseling and care coordination. Objective - Vital Signs Vital signs: Vital Signs Temp 98.0 F 01/10/22 20:49 Pulse 61 01/11/22 06:05 Resp 18 01/11/22 06:05 BP 101/53 01/11/22 06:05 Pulse Ox 100 01/11/22 06:05 Intake & Output 01/10/22 01/11/22 01/11/22 18:59 06:59 18:59 Intake Total 240 Balance 240 Intake: Oral 240 Other: Voiding Method Toilet Toilet # Voids 2 - Labs CBC & Chem 7: 01/09/22 11:09 01/09/22 11:09
[2022-01-11] MEDS ORDERED: LIDOCAINE 1% INJ 10MG/ML (20 ML MDV) ONE (13:06)
[2022-01-11] MEDS ORDERED: PROPOFOL 10 MG/ML 20 ML VIAL IV ONE (13:06)
--- NOTE | 2022-01-11 13:20 | P.OP ---
Date of Procedure: 01/11/22 Preoperative Diagnosis: GERD, dysphagia Postoperative Diagnosis: Intrathoracic stomach Large hiatal hernia Antral gastritis with watermelon striping Procedure(s) Performed: EGD Anesthesia: MAC Surgeon: Amaury Davis Pathology: other (Antrum) Condition: stable Disposition: PACU Description of Procedure: Patient's placed on the endoscopy table in the lateral position. She received IV sedation. The gastro-/oropharynx passed in the esophagus into the stomach. Scope was then placed through the pylorus. The first and second portion of the duodenum appeared normal. The scope was then brought back the antrum there was significant antral gastritis with watermelon striping of the antrum. This area is biopsied. The scope was then retroflexed. The patient had a large hiatal hernia. Approximately two thirds of the stomach was in the intrathoracic position. The GE junction was at 34 cm. The distal esophagus. Minimal inflamed. The proximal esophagus appeared normal. Scope withdrawn for patient.
[2022-01-11] MEDS ORDERED: IV FLUID CONTINUATION 400 ML IV ONE (13:22)
--- NOTE | 2022-01-11 16:26 | P.DS ---
Providers Date of admission: 01/10/22 13:00 Expected date of discharge: 01/11/22 Attending physician: Samuel Osorio MD Consults: 01/09/22 12:54 Consult Physician Urgent Consulting Provider: Romeo Day Consult Reason/Comments: chest pain Do you want consulting provider notified?: Yes 01/09/22 18:11 Consult Physician Routine Consulting Provider: Amaury Davis Consult Reason/Comments: Hiatal hernia with partial intrathoracic stomach, chest pain Do you want consulting provider notified?: Yes Primary care physician: Stated None Hospital Course: Discharge Diagnosis: Atypical Chest pain, acute coronary event ruled out Antral gastritis and a large hiatal hernia with two thirds intrathoracic stomach, patient to follow-up outpatient with general surgery for continued monitoring and management. Hypothyroidism, Continue daily medication regimen with levothyroxine GERD, Continue daily medication regimen with Protonix Depression and anxiety, Continue daily medication regimen with Celexa 30 mg each morning. Compression fractures, At this time patient is asymptomatic of back pain, but x- ray revealed possible compression fractures of lumbar spine. If patient experiences back pain/discomfort it may be beneficial for you to follow-up with orthospine surgeon such as Dr. Garcia for evaluation and possible brace. Pulmonary nodule, Chest x-ray also revealing possible upper lobe nodule and right lung, may be reactive. Recommend follow-up with a repeat chest x-ray which can be completed by your primary care doctor to ensure resolution or further monitor. Hospital Course: Patient is a very pleasant 66-year-old female with a past medical history of hypothyroidism, GERD, and anxiety. She presented to the emergency department on 01/09/22 with a chief complaint of chest pain. Patient reported she has been experiencing intermittent chest pain 2 days. She described this pain to her mid sternal chest as a "pounding-like" sensation and denied any radiation of this pain. Patient reported this pain came on with exertion with the initial time she noticed it being just after walking up her basement steps but also stated that it has also came on at rest as she reports last night she was lying in bed and again felt this pain. Patient reported that she then felt the pain for a third time as she was walking around her house and realized that something was going on. Patient stated that her daughter became very concerned and wanted her to come to the emergency department for evaluation. Patient also reported in addition to this pain she has noticed that she has been having shortness of breath with exertion over the past week and also reports feeling palpitations and lightheadedness when she feels this pain. Patient denies having a cardiac history and denies family history of sudden cardiac . In the emergency department patient was seen and fully evaluated. EKG was completed revealing sinus rhythm at 73 bpm with occasional PVCs and an incomplete right bundle branch block. Chest x-ray revealing possible right upper lobe nodule, hiatal hernia with partial intrathoracic stomach, with possible compression fractures of lumbar spine. Labs revealing microcytic microchromic anemia with hemoglobin of 10.6, currently at baseline and elevated bicarb of 32. Initial Troponin negative at less than 0.012. Patient was admitted under our services to observation unit with consultation to cardiology and general surgery. She was monitored overnight and troponins were trended all less than 0.0123 draws. Lipid profile unremarkable. Echocardiogram completed revealing an EF of 55-60% with a severely dilated left atrium, mild aortic stenosis, mild pulmonary hypertension, and mild mitral and tricuspid regurgitation. Cardiology evaluated and completed stress echo which was negative for stress-induced cardiac ischemia. General surgery evaluated and secondary to newly diagnosed hiatal hernia with intrathoracic stomach, pt was transferred to inpatient and underwent EGD this afternoon with Dr. Davis. EGD revealed diagnosis of antral gastritis and a large hiatal hernia with two thirds of the stomach in the intrathoracic position. General surgery recommending outpatient follow-up in 1 week in their office. Patient is currently free from any pain or complaints and is medically stable for discharge home. Physical exam: Vital signs reviewed and stable. General: Nontoxic, no distress and appears stated age. Derm: Skin warm and dry, normal coloration for ethnicity. Head: Atraumatic, normocephalic and symmetric. Eyes: EOMs intact, no lid lag, and anicteric sclera Mouth: no lip lesions, mucus membranes moist Cardiovascular: regular rate and rhythm with normal S1S2, systolic murmur, positive posterior tibial pulses bilaterally, and cap refill < 2 seconds. Lungs: Respirations even, regular, and unlabored on room air. Lungs CTA bilaterally, no rhonchi, no rales, no wheezing, and no accessory muscle usage. Abdominal: soft, nontender to palpation, no guarding, no appreciable organomeg viviana Ext: ROM intact. No gross muscle atrophy, no edema, no contractures Neuro: Speech clear, face symmetrical and CN II-XII grossly intact with no noted focal neuro deficits Psych: Alert and oriented to person, place, time, and situation. Appropriate and pleasant affect. A total of 38 minutes of time were spent preparing this complex discharge summary. Patient Condition at Discharge: Stable Plan - Discharge Summary Discharge Rx Participant: Yes New Discharge Prescriptions: Continue Citalopram Hydrobromide [Citalopram HBr] 30 mg PO DAILY Levothyroxine Sodium [Synthroid] 100 mcg PO MOTUWETHFRSA Ferrous Sulfate [Iron (65 MG Elemental)] 325 mg PO DAILY Pantoprazole [Protonix] 40 mg PO DAILY Discharge Medication List Citalopram Hydrobromide [Citalopram HBr] 30 mg PO DAILY 05/10/15 [History] Levothyroxine Sodium [Synthroid] 100 mcg PO MOTUWETHFRSA 04/18/16 [History] Ferrous Sulfate [Iron (65 MG Elemental)] 325 mg PO DAILY 01/09/22 [History] Pantoprazole [Protonix] 40 mg PO DAILY 01/09/22 [History] Follow up Appointment(s)/Referral(s): Jack Taylor MD [REFERRING] - 1 Week Dago Garcia DO [Doctor of Osteopathic Medicine] - 1 Week Fide Moody MD [STAFF PHYSICIAN] - 1 Week Amaury Davis MD [STAFF PHYSICIAN] - 1 Week Activity/Diet/Wound Care/Special Instructions: Activity: As tolerated. Take breaks as needed. Diet: Heart healthy and carb consistent diet. Avoid salts, or foods with hidden salts such as canned or boxed foods and frozen dinners. Extra salt makes your heart work harder and traps the fluid in your body for longer. Special Instructions: Take all of your medications as directed and remember to keep all of your doctor's appointments and follow-up as needed. At this time you are asymptomatic of back pain, but your x-ray revealed possible compression fractures of lumbar spine. If you experience back pain/discomfort it may be beneficial for you to follow-up with orthospine surgeon such as Dr. Garcia for evaluation and possible brace. Chest x-ray also revealing possible upper lobe nodule and right lung, may be reactive. Recommend follow-up with a repeat chest x-ray which can be completed by your primary care doctor to ensure resolution or further monitor. Your EGD revealed, Antral gastritis and a large hiatal hernia with two thirds intrathoracic stomach, It is important for you to follow-up outpatient with general surgery-Dr. Davis next week for continued monitoring and management. Thank you for allowing us to participate in your care, it was truly a pleasure having you for our patient!!! Discharge Disposition: HOME SELF-CARE
[2022-01-11 17:05] VITALS: PULSE 66
== END 2022-01-11 17:18 | disposition home or self-care (01) ==
LOC: EC 10:42 → 6NMEDSUR 12:50 → 3SCARD 01-10 03:41 → INTOOBSV 01-10 13:00 → OBSVTOIN 01-10 13:00 → UNDODISIN 01-11 17:18
PROVIDERS: ADMIT Internal Medicine; ATTEND Internal Medicine
DX: R07.89 Other chest pain (principal); K44.9 Diaphragmatic hernia without obstruction or gangrene; K29.70 Gastritis, unspecified, without bleeding; K31.89 Other diseases of stomach and duodenum; I08.3 Combined rheumatic disorders of mitral, aortic and tricuspid valves; E78.5 Hyperlipidemia, unspecified; I45.10 Unspecified right bundle-branch block; I27.20 Pulmonary hypertension, unspecified; K21.9 Gastro-esophageal reflux disease without esophagitis; E03.9 Hypothyroidism, unspecified; D50.9 Iron deficiency anemia, unspecified; R13.10 Dysphagia, unspecified; F32.A Depression, unspecified; F41.9 Anxiety disorder, unspecified; Z79.890 Hormone replacement therapy; Z79.899 Other long term (current) drug therapy; Z88.1 Allergy status to other antibiotic agents; Z88.2 Allergy status to sulfonamides; Z90.49 Acquired absence of other specified parts of digestive tract; Z87.891 Personal history of nicotine dependence
CPT/HCPCS: 96372 ×2; 99285; 36415; 93005; 93306; 93351; 88305; 83880; 80061; 80053; 83735; 84484; 85025; 85610; 85730; 71046; 43239; G0378 ×4; J2001; J2704; J1644 ×2

== ENCOUNTER → 2022-01-31 | Outpatient (CLI) | payer BC, MEDICARE ==
[2022-01-31 11:43] LABS: African American GFR (CKD) >90 (>60 ml/min/1.73 sqM); Blood Urea Nitrogen 10 mg/dL (7-17); Non-African American GFR(CKD) >90 (>60 ml/min/1.73 sqM)
--- NOTE | 2022-01-31 12:56 | CT ---
EXAMINATION TYPE: CT chest w con DATE OF EXAM: 01/31/2022 COMPARISON: Chest x-ray January 09, 2022 HISTORY: Pulmonary Nodule, abnormal chest x-ray. CT DLP: 541 mGycm. Automated Exposure Control for Dose Reduction was Utilized. TECHNIQUE: CT scan of the thorax is performed following with IV Contrast, patient injected with 100 mL of Isovue 300. FINDINGS: LUNGS: Bilateral intralobular septal thickening is seen greatest in the periphery involving upper and lower lungs with greater lower lung predominance. Tiny thin-walled cysts are seen in the upper lobes towards the periphery. No pleural effusion or pneumothorax is identified. Subtle 6 mm nodule in the anterior left upper lobe axial image 15 and seen best sagittal image 86. There is 6 x 4 mm anterior r ight mid lung nodule axial image 19 A few scattered smaller nodules are present. No definitive approx imate 1.0 cm nodule to correspond to the x-ray abnormality. MEDIASTINUM: There are no greater than 1 cm mediastinal lymph nodes. Prominent low dense bilateral hi lar lymph nodes. No pericardial effusion is seen. Somewhat small size thyroid gland. Mild cardiome ana. There is moderate to large sized hiatal hernia containing fat and poorly distended abnormally r otated stomach. No esophageal dilatation is seen. [id number] atherosclerotic change of thoracic aorta with bovine type configuration in the arch. OTHER: Cholecystectomy clips are present. There is partial duplicated right anterior third rib likely coming from x-ray abnormality. IMPRESSION: 1. Moderate interstitial changes as detailed above favor parenchymal fibrosis. Correlate for underlyi ng IPF. Edema is in differential. Correlation with old outside CT and clinical correlation would be b eneficial. 2. No suspicious nodule at area of x-ray concern. Scattered small nodules as detailed above. Consider CT follow-up to reassess based on Fleischner Society recommendations if these are not known. 3. Confirmation of large hiatal hernia or intrathoracic stomach.
== END | disposition home or self-care (01) ==
LOC: RADCTMAIN 10:52
PROVIDERS: ATTEND Family Medicine
DX: K44.9 Diaphragmatic hernia without obstruction or gangrene (principal); J84.9 Interstitial pulmonary disease, unspecified
CPT/HCPCS: 82565; 84520; 71260; 36415; Q9967

== ENCOUNTER → 2022-03-15 | Outpatient (CLI) | payer BC, MEDICARE ==
--- NOTE | 2022-03-15 13:09 | FL ---
EXAMINATION TYPE: FL barium swallow DATE OF EXAM: 03/15/2022 COMPARISON: None HISTORY: Diaphragmatic hernia TECHNIQUE: Double air contrast technique is utilized to evaluate the esophagus proximal stomach FINDINGS: Esophagus dilates to normal caliber normal contour to the gastroesophageal junction. The gastroesopha geal junction opens without stenosis. There is a large hiatal hernia present illness. Contrast passed into the hiatal hernia is evident. Th ere is incomplete stripping esophageal folds and horizontal drinking position. No focal stenosis is e vident. IMPRESSIONS: 1. Moderately large hiatal hernia without stenosis of the distal esophagus 2. Presbyesophagus
== END | disposition home or self-care (01) ==
LOC: RADUSWWP 08:52
PROVIDERS: ATTEND Surgery Plastic and Reconstructive Surgery
DX: K44.9 Diaphragmatic hernia without obstruction or gangrene (principal); K22.89 Other specified disease of esophagus
CPT/HCPCS: 74220

== ENCOUNTER 2022-07-05 09:56 | Day surgery (SDC) | payer BC, MEDICARE ==
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
[~2022-07-05 09:56] MED LIST: CHLORHEXIDINE GLUCONATE 15 ML CUP MUCOUS MEM PRN; HEPARIN SODIUM,PORCINE/PF 5,000 UNIT/0.5 ML SYRINGE SQ PRN; LIDOCAINE 1% (10MG/ML) FOR IV START INTRADERMA PRN; PANTOPRAZOLE 40 MG/10 ML VIAL IVP PRN
[2022-07-05] MEDS: ACETAMINOPHEN TAB 500 MG TAB PO STA ×2 (11:05→15:38)
[2022-07-05 11:14] LABS: Glucose,Whole Blood 65 mg/dL (70-110)
[2022-07-05] MEDS: LACTATED RINGERS 1,000 ML IV SCH ×3 (11:18→15:50)
[2022-07-05] MEDS: DEXAMETHASONE SOD PHOSPHATE 4 MG/ML 1 ML VIAL IV ONE ×2 (11:18→15:38)
[2022-07-05] MEDS: ONDANSETRON 4 MG/2 ML VIAL IVP ONE ×2 (11:18→15:38)
[2022-07-05] MEDS ORDERED: DEXTROSE 50% SYRINGE 50 ML IVP ONE (11:27)
[2022-07-05 11:43] LABS: Glucose,Whole Blood 144 mg/dL (70-110)
[2022-07-05] MEDS ORDERED: GLYCOPYRROLATE 0.2 MG/ML 2 ML VIAL ONE (11:50)
[2022-07-05] MEDS ORDERED: SUCCINYLCHOLINE CHLORIDE 200 MG/10 ML VIAL IV ONE (11:50)
[2022-07-05] MEDS ORDERED: MIDAZOLAM 2 MG/2 ML VIAL ONE (11:50)
[2022-07-05] MEDS ORDERED: NEOSTIGMINE 1 MG/ML 10 ML VIAL ONE (11:50)
[2022-07-05] MEDS ORDERED: LIDOCAINE 2% INJ 20 MG/ML (2 ML VIAL) ONE (11:50)
[2022-07-05] MEDS ORDERED: fentaNYL (PF) 50 MCG/ML 2 ML AMP ONE (11:50)
[2022-07-05] MEDS ORDERED: PHENYLEPHRINE-0.9% NACL SYG 1,000 MCG/10 ML SYRINGE ONE (11:50)
[2022-07-05] MEDS ORDERED: ROCURONIUM 10 MG/ML (5 ML VIAL) IV ONE (11:50)
[2022-07-05] MEDS ORDERED: PROPOFOL 10 MG/ML 20 ML VIAL IV ONE (11:50)
[2022-07-05] MEDS ORDERED: BUPIVACAIN-EPI 0.25%-1:200,000 30 ML VIAL SQ ONE (12:23)
[2022-07-05] MEDS ORDERED: LACTATED RINGERS 1,000 ML IV ONE (12:55)
[2022-07-05] MEDS ORDERED: HYDROmorphone 1 MG/ML 1 ML SYRINGE IVP PRN (13:50)
--- NOTE | 2022-07-05 14:04 | P.OP ---
Date of Procedure: 07/05/22 Description of Procedure: SURGEON: FREEDOM RODRIGUES MD PREOPERATIVE DIAGNOSES: 1. Paraesophageal diaphragmatic hiatal hernia 2. Gastroesophageal reflux disease 3. Dysphagia 4. Hypertensive heart disease 5. Hypothyroidism 6. Depressive disorder 7. Esophageal dysmotility POSTOPERATIVE DIAGNOSES: 1. 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 Gastroesophageal reflux disease 3. Dysphagia 4. Hypertensive heart disease 5. Hypothyroidism 6. Depressive disorder 7. Esophageal dysmotility OPERATION: 1. Robotic-assisted da Gogo Xi laparoscopic reduction and repair of incarcerated paraesophageal hiatal hernia 7 x 6 cm with mesh BARD 8 x 8 cm 2. Intraoperative esophagogastroduodenoscopy ANESTHESIA: General with local anesthetic. ESTIMATED BLOOD LOSS: 10 mL SPECIMENS REMOVED: None COMPLICATIONS: None. FINDINGS: 1. Paraesophageal diaphragmatic hiatal hernia with active gastric volvulus, mesenteric axial, 7 cm length 6 cm with 2. Hill grade 1 lower esophageal valve after completion of procedure INDICATIONS: The patient is a 67-year-old female who presents with epigastric abdominal pain, gastroesophageal reflux disease poorly controlled despite medications, history of dysphagia from reflux and a symptomatic diaphragmatic hiatal hernia. Given the severity of her symptoms, particularly of her symptomatic diaphragmatic hiatal hernia, she had elected for surgical intervention. Benefits and risks including bleeding, infection, recurrence, dysphagia, injury to the lung, need for further surgery was described at length. Informed consent was obtained. DESCRIPTION: The patient was brought into the operating room and placed in supine position. Preoperatively she had received subcutaneous DVT prophylaxis. After general induction, the abdomen was prepped and draped in standard sterile fashion. The patient had previously voided prior to coming to the operating room. Ioban draping was placed along the abdomen. A timeout protocol was confirmed with the surgical team, for which the patient's name, procedure to be performed including DVT prophylaxis with bilateral SCDs, and preoperative antibiotics were also confirmed. A robotic da Gogo Xi system was prepped and primed. At 12 cm from the xiphoid to just below the umbilicus, proposed port sites were marked with indelible marker along the left axillary line, left mid-clavicular line with each ports were marked 10 cm from each other. A 5 mm 0 degrees laparoscopic trocar entry was performed along the left upper quadrant. The abdomen was insufflated to 15 mmHg pressure she tolerated well. Diagnostic laparoscopy demonstrated no injury to bowel, viscera, or mesentery. The liver surface was unremarkable. No injury had occurred to the small bowel or viscera. Next, one 8 mm robotic port was placed along the right upper abdomen. An 8-mm port was were placed along the left mid abdomen. The camera 12-mm port extended length was maintained along the epigastrium via the hernia defect. Another 8 mm port was placed along the left upper abdominal wall after exchanging the 5 mm port. Please note that the ports were placed at least 20 cm away from the target anatomy. Care was taken to check that each robotic arm were safely away from collision with the bed or the patient. At the epigastrium, a medium sized Teodora liver retractor was placed under direct visualization with the Iron Loom Fixer placed under the right shoulder of the patient. The patient was repositioned in reverse Trendelenburg position 21 after lowering the bed. The robot was docked above the head of the patient. Using a grasper for arm 3, a grasper for arm 2, including hook cautery for arm 1, the robotic system was docked and primed as described. Instruments were interchanged by the assistant at surgery. I had sat at the console. The gastrohepatic ligament was cleaved using a vessel sealer. Next, the phrenoesophageal ligament was mobilized and the distal esophagus was mobilized circumferentially without injury to the bilateral vagi nerves. The left and right crura was identified. Moderate dissection into the mediastinum was performed to reduce mesenteric axial gastric volvulus and paraesophageal hiatal hernia. Mobilization of the distal esophagus into the mediastinum was performed without injury to the vagus nerves. The measured defect was consistent with at least 7 cm axial length and 6 cm width. After extensive dissection, the distal esophagus of at least 2 cm was brought into the abdominal cavity. Once the hiatus and crura was dissected, 2-0 VLOC nonabsorbable suture was placed to reapproximate the diaphragmatic hiatus posteriorly. A [place] Biopatch A 8 x 8 cm mesh was cut in quarter keyhole size in place as a onlay of the posterior hiatal hernia repair. The mesh was sutured using nonabsorbable suture. I went to the head of the bed to perform intraoperative esophagogastroduodenoscopy. An Olympus gastroscope was passed through posterior oropharynx, where the GE junction was found distal to the diaphragmatic hiatus. The intra-abdominal esophageal length obtained during the case was over 2 cm. The stomach was entered including duodenum. Retroflexion of the scope confirmed a Hill grade 1 lower esophageal valve. The squamocolumnar junction was at 35 cm. Diaphragmatic hiatus was at 35 cm. The stomach had been desufflated. No evidence of leaks were found either of the mucosal defects of the esophagus or stomach. This concluded the endoscopic portion of the case. The robot was undocked from the patient. I re-scrubbed into the case. All instruments and pneumoperitoneum were evacuated from the abdominal cavity. Incisions were reapproximated using 4-0 Monocryl in an interrupted subcuticular fashion. Liquid glue was applied to the skin. Local anesthetic was infiltrated in all wounds for postop analgesia. Multiple intra-abdominal films were obtained. At the end of the procedure, needle, sponge, and instrument count was verified correct by the instructor adjunct surgical technician. The patient had tolerated the procedure well and was taken to the postanesthesia unit in stable condition. Intraoperative films were reviewed with the patient's family who was pleased with the level of care.
[2022-07-05] MEDS: HYDROmorphone 0.5 MG/0.5 ML SYRINGE IVP PRN ×2 (14:07→14:34)
[2022-07-05] MEDS ORDERED: SODIUM CHLORIDE 0.9% 1,000 ML IV SCH (14:15)
[2022-07-05] MEDS ORDERED: diphenhydrAMINE 50 MG/ML 1 ML VIAL IVP ONE (14:30)
[2022-07-05] MEDS ORDERED: SIMETHICONE 40 MG/0.6 ML DROPS 2,000 MG/30 ML BOTTLE PO ONE (14:46)
[2022-07-05] MEDS ORDERED: SODIUM CHLORIDE 0.9% 1,000 ML IV ONE (15:15)
[2022-07-05 16:42] VITALS: RESP 16
[2022-07-05] MEDS: SIMETHICONE 40 MG/0.6 ML DROPS 2,000 MG/30 ML BOTTLE PO SCH ×2 (17:05→20:55)
[2022-07-05] MEDS: ACETAMINOPHEN IV (For NPO) 1,000 MG in EMPTY BAG 1 BAG IVPB SCH (17:05)
[2022-07-05] MEDS: METOCLOPRAMIDE 5 MG/ML 2 ML VIAL IVP SCH (17:05)
[2022-07-05] MEDS: ONDANSETRON 4 MG/2 ML VIAL IVP SCH (17:05)
[2022-07-05] MEDS: HEPARIN SODIUM,PORCINE/PF 5,000 UNIT/0.5 ML SYRINGE SQ SCH (20:55)
[2022-07-06] MEDS: ONDANSETRON 4 MG/2 ML VIAL IVP SCH ×2 (00:49→06:23)
[2022-07-06] MEDS: METOCLOPRAMIDE 5 MG/ML 2 ML VIAL IVP SCH ×2 (00:50→06:22)
[2022-07-06] MEDS: ACETAMINOPHEN IV (For NPO) 1,000 MG in EMPTY BAG 1 BAG IVPB SCH ×2 (00:50→06:23)
[2022-07-06] MEDS ORDERED: DEXAMETHASONE SOD PHOSPHATE 4 MG/ML 1 ML VIAL IVP SCH (08:15)
[2022-07-06 08:45] VITALS: BP 93/53; PULSE 60; TEMP 98.6
--- NOTE | 2022-07-06 08:50 | FL ---
Single contrast esophagram EXAMINATION TYPE: FL esophagus cervic/pharynx DATE OF EXAM: 07/06/2022 8:44 AM COMPARISON: NONE CLINICAL HISTORY: Status post Marco A fundoplication The patient ingested contrast without difficulty or delay. Noted are changes of Marco A fundoplicatio n. There is no evidence for leak or obstruction. Small amount of residual contrast within the distal esophagus. IMPRESSION: Post-surgical change of Marco A fundoplication without evidence for leak or obstruction.
[2022-07-06] MEDS ORDERED: PANTOPRAZOLE 40 MG/10 ML VIAL IVP SCH (09:00)
[2022-07-06] MEDS: HEPARIN SODIUM,PORCINE/PF 5,000 UNIT/0.5 ML SYRINGE SQ SCH (09:09)
--- NOTE | 2022-07-06 11:47 | P.DS ---
Providers Date of admission: 07/05/22 Expected date of discharge: 07/06/22 Attending physician: Lorena Casey [facility] Course: POSTOPERATIVE DIAGNOSES: 1. 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 Gastroesophageal reflux disease 3. Dysphagia 4. Hypertensive heart disease 5. Hypothyroidism 6. Depressive disorder 7. Esophageal dysmotility COURSE: The patient is an 67-year-old female comes in with symptomatic paraesophageal hiatal hernia with gastric volvulus. She is status post repair. Postoperatively, she is tolerating liquids. No reports of dysphagia. Esophagram was unremarkable for leak or obstruction confirming complete reduction of her hernia. Dietary restrictions including lifting restrictions reviewed. All questions were addressed. Follow-up in the office within 5 days also reviewed. Overall, patient did well. Procedures: OPERATION: 1. Robotic-assisted da Gogo Xi laparoscopic reduction and repair of incarcerated paraesophageal hiatal hernia 7 x 6 cm with mesh BARD 8 x 8 cm 2. Intraoperative esophagogastroduodenoscopy ANESTHESIA: General with local anesthetic. ESTIMATED BLOOD LOSS: 10 mL SPECIMENS REMOVED: None COMPLICATIONS: None. FINDINGS: 1. Paraesophageal diaphragmatic hiatal hernia with active gastric volvulus, mesenteric axial, 7 cm length 6 cm with 2. Hill grade 1 lower esophageal valve after completion of procedure Patient Condition at Discharge: Good Plan - Discharge Summary Discharge Rx Participant: No New Discharge Prescriptions: New Acetaminophen Tab [Tylenol Tab] 1,000 mg PO Q6HR PRN #30 tablet PRN Reason: Pain Simethicone 40 mg/0.6 ml Drops [Mylicon Drops] 40 mg PO QID ml bisacodyL [Dulcolax] 5 mg PO DAILY PRN #10 tab PRN Reason: Constipation Ibuprofen [Motrin] 600 mg PO Q8HR PRN #30 tab PRN Reason: Pain Simethicone 40 mg/0.6 ml Drops [Mylicon Drops] 40 mg PO PCHS PRN #30 ml PRN Reason: Gas Ondansetron Odt [Zofran Odt] 4 mg PO Q8HR PRN #9 tab PRN Reason: Nausea Continue Citalopram Hydrobromide [Citalopram HBr] 30 mg PO QAM Levothyroxine Sodium [Synthroid] 100 mcg PO MOTUWETHFRSA Discontinued Pantoprazole [Protonix] 40 mg PO QAM Discharge Medication List Citalopram Hydrobromide [Citalopram HBr] 30 mg PO QAM 05/10/15 [History] Levothyroxine Sodium [Synthroid] 100 mcg PO MOTUWETHFRSA 04/18/16 [History] Acetaminophen Tab [Tylenol Tab] 1,000 mg PO Q6HR PRN #30 tablet 07/06/22 [Rx] Ibuprofen [Motrin] 600 mg PO Q8HR PRN #30 tab 07/06/22 [Rx] Ondansetron Odt [Zofran Odt] 4 mg PO Q8HR PRN #9 tab 07/06/22 [Rx] Simethicone 40 mg/0.6 ml Drops [Mylicon Drops] 40 mg PO PCHS PRN #30 ml 07/06/22 [Rx] Simethicone 40 mg/0.6 ml Drops [Mylicon Drops] 40 mg PO QID ml 07/06/22 [Rx] bisacodyL [Dulcolax] 5 mg PO DAILY PRN #10 tab 07/06/22 [Rx] Follow up Appointment(s)/Referral(s): Lorena Casey MD [STAFF PHYSICIAN] - 07/10/22 (TELEHEALTH) Patient Instructions/Handouts: *Surgery [facility] - Managing Your Pain After Surgery Without Opioids, Hiatal Hernia (DC), Laparoscopic Hiatal Hernia Repair (GEN), Lysis of Abdominal Adhesions (DC) Activity/Diet/Wound Care/Special Instructions: Liquid diet only for 2 weeks until July 19 No lifting over 4 pounds in 4 weeks, August 04February shower No soaking in bath tubs for July 19 Please notify your surgeon if you develop nausea and vomiting including new onset of abdominal pain. Please ambulate at all times. Use Simethicone, Gas-X, Tylenol and ibuprofen or Aleve scheduled for the next 24-48 hours for best pain relief. Use ice along incisions for the today to prevent swelling. Please open, cut, crush pills larger than the size of a tic tack No carbonated beverages. No straws. Do not remove scopolamine patch for 3 days, if present Avoiding Gas Avoid drinking through a straw. Do not chew gum or tobacco. These actions cause you to swallow air, which produces excess gas in your stomach. Chew with your mouth closed. Avoid any foods that cause stomach gas and distention. These foods include corn, dried beans, peas, lentils, onions, broccoli, cauliflower and any food from the cabbage family. Avoid carbonated drinks, alcohol, citrus and tomato products. Carbonated drinks (sodas) are not allowed for the first six to eight weeks after surgery. After this time you can try them again in small amounts Clear Liquid Diet The first diet after surgery is the clear liquid diet. It includes the following liquids: Apple juice Cranberry juice Grape juice Chicken broth Beef broth Flavored gelatin (Jell-O) Decaf tea and coffee Caffeinated beverages are permitted based on tolerance [facility] Full Liquid Diet The full liquid diet contains anything on the clear liquid diet, plus: Milk, soy, rice and almond (no chocolate) Cream of wheat, cream of rice, grits Strained creamed soups (no tomato or broccoli) Vanilla and strawberry-flavored ice cream Sherbet Blended, custard styled or whipped yogurt (plain or vanilla only) Vanilla and butterscotch pudding (no chocolate or coconut) Nutritional drinks including Ensure, Boost, [place] Instant Breakfast (no chocolate-flavored) Note: Dairy products, such as milk, ice cream and pudding, may cause diarrhea in some people just after surgery. You may need to avoid milk products. If so, substitute them with lactose-free beverages, such as soy, rice, Lactaid or almond milks. Discharge Disposition: HOME SELF-CARE
[2022-07-06 13:19] VITALS: BMI 28.2
== END 2022-07-06 13:20 | disposition home or self-care (01) ==
LOC: OR 09:56 → 4SSUR 15:01 → OR 07-06 13:20
PROVIDERS: ATTEND Surgery Plastic and Reconstructive Surgery
DX: K44.0 Diaphragmatic hernia with obstruction, without gangrene (principal); I11.0 Hypertensive heart disease with heart failure; I50.9 Heart failure, unspecified; E03.9 Hypothyroidism, unspecified; F32.A Depression, unspecified; K22.4 Dyskinesia of esophagus; K21.9 Gastro-esophageal reflux disease without esophagitis; E07.9 Disorder of thyroid, unspecified; K91.0 Vomiting following gastrointestinal surgery; Z87.891 Personal history of nicotine dependence; Z90.89 Acquired absence of other organs; Z82.49 Family history of ischemic heart disease and other diseases of the circulatory system; Z88.2 Allergy status to sulfonamides; Z79.899 Other long term (current) drug therapy; Z79.890 Hormone replacement therapy
CPT/HCPCS: 43282; 74210; C1781; J2250; J0330; J1200; J1100 ×2; J2710; J2765 ×2; J0690 ×2; J2405 ×2; J3010; J0131 ×2; J2370; J2704; C9113; J1170; Q9967; J1644 ×2; J2001

== ENCOUNTER → 2022-07-30 | Outpatient (CLI) | payer BC, MEDICARE ==
--- NOTE | 2022-07-30 15:28 | BD ---
EXAMINATION TYPE: Axial Bone Density DATE OF EXAM: 07/30/2022 COMPARISON: 12-22-2012 CLINICAL HISTORY: 67 years year old Female. ICD-10 CODE: Z78.0 Asymptomatic menopausal w/o HRT Height: 56.5in Weight: 142LB FRAX RISK QUESTIONS: History of Fracture in Adulthood: YES Secondary Osteoporosis: RISK FACTORS HISTORY OF: Active: YES Postmenopausal woman: YES Lost more than 2 inches in height since high school: YES MEDICATIONS: Thyroid Medications: Which medication: Synthroid How Lon YEARS Additional Medications: DEPRESSION MED, MULTIVITAMIN Additional History: ANKLE FX EXAM MEASUREMENTS: Bone mineral densitometry was performed using the [employer]. Bone mineral density as measured about the Lumbar spine is: ----- L1-L4(G/cm2): 1.124 T Score Values are as follows: ----- L1: 0.3 ----- L2: -1.4 ----- L3: -0.7 ----- L4: -0.2 ----- L1-L4: -0.5 NO LUMBAR COMPARISON Bone mineral density about the R hip (g/cm2): 0.800 Bone mineral density about the L hip (g/cm2): 0.842 T Score values are as follows: -----R Neck: -2.3 -----L Neck: -2.2 -----R Total: -1.6 -----L Total: -1.3 Bone mineral density has: Decreased -10.8% since study of: 12-22-2012 FRAX%s: The graph provided illustrates a 19.9% chance for a major osteoporotic fx and a 4.0% chance f or the hips probability for fx in 10 years time. IMPRESSION: Osteopenia (T Score between -2.5 and -1). There is slightly increased risk of fracture and the patient may be considered for treatment. Re-Screen 2-5 years. NOTE: T-SCORE=SD OF THE YOUNG ADULT MEAN.
--- NOTE | 2022-07-31 10:04 | MM ---
Reason for Exam: Screening (asymptomatic). Last mammogram was performed 3 year(s) and 2 month(s) ago. Patient History: Menarche at age 12. First Full-Term at age 23. Postmenopausal. Patient has history of breast feeding. 1989, Benign Excisional Biopsy on the right side. Maternal aunt had breast cancer, age 60. Mother had breast cancer, age 60. Risk Values: So 5 year model risk: 3.8%. NCI Lifetime model risk: 12.7%. Prior Study Comparison: 07/21/1996 Screening Mammogram, [facility]. 05/24/2003 Bilateral Screening Mammogram, [facility] 08/07/2005 Bilateral Screening Mammogram, [facility]. 08/25/2009 Bilateral Screening Mammogram, [facility]. 09/07/2010 Bilateral Screening Mammogram, [facility] 12/22/2012 Bilateral Screening Mammogram, [facility] 03/08/2015 Bilateral Screening Mammogram, [facility] 03/16/2015 Right Diagnostic Mammogram, [facility] 09/19/2015 Right Diagnostic Mammogram, [facility]. 05/14/2019 Bilateral Screening Mammogram, [facility]. Tissue Density: There are scattered fibroglandular densities. Findings: Analyzed By CAD. Bilateral areas of focal asymmetry remain unchanged. Chronic nodularity in both sides also redemonstrated. There is a very subtle group of microcalcifications superior right MLO view, possibly located laterally. Magnification views are recommended to further characterize. Otherwise, no significant change. Overall Assessment: Incomplete: need additional imaging evaluation, BI-RAD 0 Management: Special View Mammogram of the right breast. Including mag CC, mag ML, and 3-D ML views. [facility] will attempt to contact patient to return for supplemental views and ultrasound if indicated. Electronically signed and approved by: Damaris Jean M.D. Radiologist
== END | disposition home or self-care (01) ==
LOC: RADMAMWWP 14:18
PROVIDERS: ATTEND Family Medicine
DX: Z12.31 Encounter for screening mammogram for malignant neoplasm of breast (principal); Z78.0 Asymptomatic menopausal state; Z80.3 Family history of malignant neoplasm of breast
CPT/HCPCS: 77067; 77080

== ENCOUNTER → 2022-07-31 | Outpatient (CLI) | payer BC, MEDICARE ==
[2022-07-31 13:54] LABS: African American GFR (CKD) >90 (>60 ml/min/1.73 sqM); Blood Urea Nitrogen 12 mg/dL (7-17); Non-African American GFR(CKD) >90 (>60 ml/min/1.73 sqM)
--- NOTE | 2022-08-01 21:55 | CT ---
EXAMINATION TYPE: CT chest w con DATE OF EXAM: 07/31/2022 COMPARISON: 01/31/2022 HISTORY: 67-year-old female R91.1, Solitary pulmonary nodule TECHNIQUE: Contiguous axial scanning of the chest after the administration of 75 mL of Isovue 300. C oronal/sagittal reconstructions performed. CT DLP: 270.4mGycm. Automatic exposure control utilized for a dose reduction. FINDINGS: The heart is upper limits of normal in size without pericardial effusion. Mild to moderate aortic nazanin vular calcifications are noted. Aorta shows mild atherosclerotic arch calcifications and conventional arch vessel branching anatomy t quincy there are tortuous great vessels. There is mild ectasia of the mid and distal descending thorac ic aorta tor 2.8 cm. Scattered nonenlarged mediastinal lymph nodes measuring up to 7 mm are unchanged. Bilateral hilar lym ph nodes measuring up to 1.4 cm remain unchanged, likely reactive/post inflammatory. No increasing th oracic lymphadenopathy. Redemonstrated mild emphysematous change. Peripheral and mid to lower lung groundglass densities. Mil d bronchiolectasis in the lower lungs and reticular changes throughout. 6 mm anterior left upper lobe pulmonary nodule, axial image 16 is unchanged. 5 mm anterior right midlung pulmonary nodule, axial image 21 is unchanged. Tiny 2 mm posterior right basilar pulmonary nodule, axial image 43 is unchanged 4 mm posteromedial left lower lobe pulmonary nodule, axial image 32 is unchanged. There is redemonstration of a hiatal hernia. Currently, this appears more small to moderate in size b ut with more prominent associated soft tissue, reference axial image 35. Direct visualization to excl ude underlying neoplasm. Visualized upper abdomen shows cholecystectomy clips and prominent bile duct measuring up to 1.2 cm, likely postcholecystectomy status. Bones: Accentuated lower thoracic kyphosis. Moderate to advanced degenerative disc disease lower thor acic spine. Unchanged mild superior endplate deformity of T8 and L2. Grade 1 retrolisthesis T12-L1 an d L1-L2 are unchanged. IMPRESSION: 1. 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 The interstitial lung di sease is characterized by groundglass and reticular change with a mid to lower lung predominance as w ell as minimal bibasilar bronchiolectasis. Consider possibilities such as NSIP or DIP. 2. A few scattered pulmonary nodules measuring up to 6 mm remain unchanged for 6 months suggesting a benign etiology. Consider an additional one year follow-up surveillance exam. 3. The patient's hiatal hernia appears smaller, now [id number] in size but with more pronounce d soft tissue thickening now. This could represent collapsed and redundant gastric wall. Further lizz elation with patient's symptoms. If indicated, direct visualization to exclude the possibility of blessing plasm.
== END | disposition home or self-care (01) ==
LOC: RADCTMAIN 13:11
PROVIDERS: ATTEND Internal Medicine Critical Care Medicine
DX: R91.1 Solitary pulmonary nodule (principal)
CPT/HCPCS: 82565; 84520; 71260; 36415; Q9967

== ENCOUNTER → 2022-08-07 | Outpatient (CLI) | payer BC, MEDICARE ==
--- NOTE | 2022-08-07 10:49 | MM ---
Reason for Exam: Additional evaluation requested from abnormal screening. Last screening mammogram was performed less than 1 month ago. Patient History: Menarche at age 12. First Full-Term at age 23. Postmenopausal. Patient has history of breast feeding. 1989, Benign Excisional Biopsy on the right side. Maternal aunt had breast cancer, age 60. Mother had breast cancer, age 60. Risk Values: So 5 year model risk: 3.8%. NCI Lifetime model risk: 12.7%. Prior Study Comparison: 09/19/2015 Right Diagnostic Mammogram, [facility]. 05/14/2019 Bilateral Screening Mammogram, [facility]. 07/30/2022 Bilateral MG screening mammo w CAD, [facility]. Tissue Density: Right: There are scattered fibroglandular densities. Findings: Analyzed By CAD. There is a small rounded density associated with 5 grouped punctate calcifications located upper outer quadrant 8 cm from the nipple. This may be an interval finding. Stereotactic core biopsy is recommended. Overall Assessment: Suspicious, BI-RAD 4 Management: Stereotactic Core Biopsy of the right breast. A clinical breast exam by your physician is recommended on an annual basis and results should be correlated with mammographic findings. This exam should not preclude additional follow-up of suspicious palpable abnormalities. Results were given to the patient verbally at the time of exam. Electronically signed and approved by: Dimas Small D.O. Radiologis
== END | disposition home or self-care (01) ==
LOC: RADMAMWWP 10:04
PROVIDERS: ATTEND Family Medicine
DX: R92.8 Other abnormal and inconclusive findings on diagnostic imaging of breast (principal); Z78.0 Asymptomatic menopausal state; Z80.3 Family history of malignant neoplasm of breast
CPT/HCPCS: 77065

== ENCOUNTER → 2022-09-14 | Outpatient (CLI) | payer BC, MEDICARE ==
[2022-09-14 07:37] VITALS: BP 130/72; PULSE 65; RESP 16; TEMP 98.3
== END ==
LOC: WWCWWP 06:55
PROVIDERS: ATTEND Surgery
DX: R92.8 Other abnormal and inconclusive findings on diagnostic imaging of breast (principal); Z87.891 Personal history of nicotine dependence; Z88.2 Allergy status to sulfonamides; Z88.8 Allergy status to other drugs, medicaments and biological substances

== ENCOUNTER → 2022-09-14 | Day surgery (SDC) | payer BC, MEDICARE ==
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
--- NOTE | 2022-09-21 11:17 | MM ---
Risk Values: So 5 year model risk: 3.8%. NCI Lifetime model risk: 12.7%. Prior Study Comparison: 05/14/2019 Bilateral Screening Mammogram, [facility]. 07/30/2022 Bilateral MG screening mammo w CAD, [facility]. 08/07/2022 Right MG work up mamm w CAD RT, [facility]. Pathology Description: Location: upper outer quadrant. Approach: Lateral to Medial Needle Type: Eviva Cores: 6 Skin Nicks: 1 Gauge: 9 Pathology Results: Result: Malignant, Invasive ductal carcinoma. RIGHT BREAST, STEREOTACTIC CORE BIOPSY: Invasive low grade ductal carcinoma, grade 1, with focally favored intermediate grade DCIS having focal microcalcification and favored focal comedonecrosis (see surgical pathology cancer case summary and comment). Overall Assessment: Malignant Management: Surgical Consultation of the right breast. Electronically signed and approved by: Anshul Wilson M.D.
== END ==
LOC: RADMAMWWP 06:51
PROVIDERS: ATTEND Surgery
DX: C50.911 Malignant neoplasm of unspecified site of right female breast (principal); K44.9 Diaphragmatic hernia without obstruction or gangrene; K21.9 Gastro-esophageal reflux disease without esophagitis; E03.9 Hypothyroidism, unspecified; Z87.891 Personal history of nicotine dependence; Z80.3 Family history of malignant neoplasm of breast; Z90.49 Acquired absence of other specified parts of digestive tract; Z82.49 Family history of ischemic heart disease and other diseases of the circulatory system; Z88.2 Allergy status to sulfonamides; Z88.1 Allergy status to other antibiotic agents; Z79.899 Other long term (current) drug therapy
CPT/HCPCS: 88305; 88342; 88341; 19081; A4648

== ENCOUNTER → 2022-09-20 | Outpatient (CLI) | payer BC, MEDICARE ==
[2022-09-20 14:36] VITALS: BP 149/84; PULSE 92; RESP 17; TEMP 98.3
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
== END ==
LOC: WWCWWP 14:06
PROVIDERS: ATTEND Surgery
DX: D05.11 Intraductal carcinoma in situ of right breast (principal); E03.9 Hypothyroidism, unspecified; Z79.890 Hormone replacement therapy; K21.9 Gastro-esophageal reflux disease without esophagitis; Z88.2 Allergy status to sulfonamides; Z87.891 Personal history of nicotine dependence

== ENCOUNTER 2022-10-20 11:13 | Emergency (ER) | payer BC, MEDICARE ==
[2022-10-20 11:24] VITALS: BP 144/85; PULSE 74; RESP 18; TEMP 98
[2022-10-20] MEDS ORDERED: ORPHENADRINE 30 MG/ML 2 ML VIAL IM STA (11:33)
[2022-10-20] MEDS ORDERED: KETOROLAC 15 MG/ML 1 ML VIAL IM STA (11:33)
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
--- NOTE | 2022-10-20 12:50 | CT ---
EXAMINATION TYPE: CT thor lumbar spine wo con CT DLP: 1263.4 mGycm, Automated exposure control for dose reduction was used. DATE OF EXAM: 10/20/2022 12:20 PM CLINICAL INDICATION:Female, 67 years old with history of injury, mid back pain; Mid back pain after f all x1 week ago. COMPARISON: 07/31/[address] TECHNIQUE: Axial images of the thoracic and lumbar spine were obtained without contrast. Coronal and sagittal reformats were performed. 3-D reformats of the bones were created on a separate workstation and submitted for review. CT Contrast: Contrast used: none. Oral contrast used: none. FINDINGS: Thoracic: Diffuse osseous demineralization of the spine. Multilevel disc degeneration changes with osteophyte formation and endplate sclerosis. Scattered vacuum disc phenomenon. The thoracic vertebral bodies have preserved heights and alignment. Intervertebral discs and osseou s structures have normal appearance. T8-T9 mild spinal canal stenosis secondary to posterior osteophyte. T9-T10 mild to moderate spinal canal stenosis secondary to posterior osteophyte. T9-T10 and T10-T11 moderate severe bilateral neural foraminal stenosis secondary to facet joint arthr opathy. Lumbar: Alignment: There are 5 lumbar type vertebral bodies . Grade I to the subsegmental 4 on L5. Bone: No definitive evidence for fracture. There is osteophytes seen throughout the lumbar spine with endplate changes. Discs: T12-L1: No spinal canal or neural foraminal stenosis is identified. L1-L2: No spinal canal or neural foraminal stenosis is identified. L2-L3: No spinal canal or neural foraminal stenosis is identified. L3-L4: No spinal canal or neural foraminal stenosis is identified. L4-L5: No spinal canal or neural foraminal stenosis is identified. L5-S1: Disc bulge and facet joint arthropathy with moderate to severe spinal canal stenosis. Other: Atherosclerosis of the arterial vasculature. Scattered clonic diverticula. Gallbladder surgica lly absent. Presumably physiologic dilation of the common duct. Small moderate hiatal hernia. IMPRESSION: 1. No definitive evidence for lumbar spine fracture. Consider MRI for higher sensitivity for subtle fractures. 2. Moderate to severe multilevel disc degeneration changes and endplate changes. Grade 1 anterolisth esis of L4 and L5. 3. T9-T10 posterior osteophyte with mild to moderate spinal canal stenosis. 4. Moderate T9-T10 and T10-11 neural foraminal stenosis secondary to facet joint arthropathy.
== END 2022-10-20 13:29 | disposition home or self-care (01) ==
LOC: EC 11:13
DX: M54.50 Low back pain, unspecified (principal); M43.16 Spondylolisthesis, lumbar region; M48.04 Spinal stenosis, thoracic region; M47.819 Spondylosis without myelopathy or radiculopathy, site unspecified; M48.061 Spinal stenosis, lumbar region without neurogenic claudication; E07.9 Disorder of thyroid, unspecified; F41.9 Anxiety disorder, unspecified; Z87.891 Personal history of nicotine dependence; Z79.890 Hormone replacement therapy; Z88.2 Allergy status to sulfonamides; W01.0XXA Fall on same level from slipping, tripping and stumbling without subsequent striking against object, initial encounter
CPT/HCPCS: 72128; 72131; 99284; 96372 ×2; J2360; J1885

== ENCOUNTER → 2022-11-02 | Outpatient (CLI) | payer BC, MEDICARE ==
[2022-11-02 09:52] VITALS: BP 153/94; PULSE 99; RESP 17; TEMP 97.8
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
== END ==
LOC: WWCWWP 09:42
PROVIDERS: ATTEND Surgery
DX: C50.911 Malignant neoplasm of unspecified site of right female breast (principal); E03.9 Hypothyroidism, unspecified; M54.9 Dorsalgia, unspecified; Z88.2 Allergy status to sulfonamides; K21.9 Gastro-esophageal reflux disease without esophagitis; Z87.891 Personal history of nicotine dependence

== ENCOUNTER → 2022-12-25 | Outpatient (CLI) | payer BC, MEDICARE ==
--- NOTE | 2022-12-25 15:22 | MR ---
EXAMINATION TYPE: MR thoracic spine wo/w con DATE OF EXAM: 12/25/2022 7:54 AM COMPARISON: MRI lumbar spine 12/03/2022 INDICATION: Patient age:Female; 67 years old; Reason for study: S22.009A FRACTURE OF UNSP THORACIC VERTEBRA; Back pain, Fall TECHNIQUE: Multi planar, multi sequence imaging was performed utilizing: T1-weighted, short-tau inver vicki recovery and T2-weighted of the thoracic spine. The patient was not given Gadolinium. IV Contrast: 6 cc Gadavist FINDINGS: Inversion recovery edema seen throughout the T9 vertebral body when counting from C1, there is a mo sitional vertebrae at L5 on prior lumbar spine MRI where it was labeled at T10. There is 3 mm retropu lsion which is similar prior. Greater than 50% height loss anteriorly is present. There is facet join t arthropathy at this level with at least moderate to severe bilateral neural foraminal stenosis. No additional fractures visualized. Multilevel Modic endplate changes, Schmorl's nodes, disc height loss and osteophyte formation are pre sent. There is multilevel facet joint arthropathy present. T8-T9 facet joint arthropathy with mild bilateral neural foraminal stenosis. Spinal canal is patent. T11-T12 osteophyte with disc bulging without significant spinal canal stenosis. No additional evidence for significant spinal canal or neural foraminal stenosis. IMPRESSION: 1. Stable appearing compression fracture of T9 with 50% height loss within counting from C1 with 50% height loss and 3 mm retropulsion. Moderate to severe neural foraminal stenosis at this level. 2. No additional spinal fractures.
== END | disposition home or self-care (01) ==
LOC: RADMRIMAIN 06:51
PROVIDERS: ATTEND Nurse Practitioner Family
DX: S22.070A Wedge compression fracture of T9-T10 vertebra, initial encounter for closed fracture (principal)
CPT/HCPCS: 72157; A9585

== ENCOUNTER → 2023-01-03 | Outpatient (CLI) | payer BC, MEDICARE ==
[2023-01-03 10:36] VITALS: BP 172/92; PULSE 62; RESP 17; TEMP 98.2
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
== END ==
LOC: WWCWWP 09:33
PROVIDERS: ATTEND Surgery
DX: D05.11 Intraductal carcinoma in situ of right breast (principal); K21.9 Gastro-esophageal reflux disease without esophagitis; E07.9 Disorder of thyroid, unspecified; E03.9 Hypothyroidism, unspecified; K44.9 Diaphragmatic hernia without obstruction or gangrene; J43.9 Emphysema, unspecified; N64.89 Other specified disorders of breast; Z88.2 Allergy status to sulfonamides; Z87.891 Personal history of nicotine dependence

== ENCOUNTER → 2023-01-17 | Outpatient (CLI) | payer BC, MEDICARE ==
[2023-01-18 03:59] LABS: Basophils # (A) 0.02 X 10*3/uL (0.00-0.10); Basophils % (A) 0.4 %; Eosinophils # (A) 0.04 X 10*3/uL (0.04-0.35); Eosinophils % (A) 0.8 %; HCT 42.4 % (37.2-46.3); HGB 13.4 g/dL (12.0-15.0); Immature Grans, Automated 0.2 %; Lymphocytes # (A) 0.51 X 10*3/uL (0.90-5.00); Lymphocytes % (A) 10.8 %; MCH 27.5 pg (27.0-32.0); MCHC 31.6 g/dL (32.0-37.0); MCV 87.1 fL (80.0-97.0); Mean Platelet Volume 9.9 fL (9.5-12.2); Monocytes % (A) 8.5 %; NRBC Per 100 WBC 0 /100 WBCS (0.0-0.0); Neutrophils # (A) 3.73 X 10*3/uL (1.80-7.70); Neutrophils % (A) 79.3 %; Platelet Count 253 X 10*3/uL (140-440); RBC 4.87 X 10*6/uL (4.10-5.20); RDW 14.9 % (11.5-14.5); WBC 4.71 X 10*3/uL (4.50-10.00)
[2023-01-18 04:05] LABS: African American GFR (CKD) 86.3 (60.0-200.0); Anion Gap 9.4 mmol/L (10.00-18.00); BUN/Creat Ratio 8.6 Ratio (12.00-20.00); Calcium 9.3 mg/dL (8.7-10.3); Carbon Dioxide 29.5 mmol/L (20.0-27.5); Non-African American GFR(CKD) 74.5 (60.0-200.0); Potassium 3.7 mmol/L (3.5-5.5)
== END | disposition home or self-care (01) ==
LOC: LABPAT 15:31
PROVIDERS: ATTEND Orthopaedic Surgery
DX: Z01.812 Encounter for preprocedural laboratory examination (principal); M84.48XA Pathological fracture, other site, initial encounter for fracture
CPT/HCPCS: 80048; 85025; 86850; 86900; 86901

== ENCOUNTER 2023-02-01 10:52 | Day surgery (SDC) | payer BC, MEDICARE ==
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
[~2023-02-01 10:52] MED LIST changes: +ACETAMINOPHEN TAB 500 MG TAB PO PRN; -CHLORHEXIDINE GLUCONATE 15 ML CUP MUCOUS MEM PRN; +GABAPENTIN 300 MG CAP PO PRN; -HEPARIN SODIUM,PORCINE/PF 5,000 UNIT/0.5 ML SYRINGE SQ PRN; -LIDOCAINE 1% (10MG/ML) FOR IV START INTRADERMA PRN; +MELOXICAM 7.5 MG TAB PO PRN; -PANTOPRAZOLE 40 MG/10 ML VIAL IVP PRN; +TRANEXAMIC ACID IN NACL,ISO-OS 1,000 MG in SALINE 1 100ML.BAG IVPB PRN
[2023-02-01] MEDS ORDERED: LACTATED RINGERS 1,000 ML IV ONE ×2 (11:24→14:12)
[2023-02-01] MEDS ORDERED: ONDANSETRON 4 MG/2 ML VIAL ONE ×2 (11:44→16:03)
[2023-02-01] MEDS ORDERED: DEXAMETHASONE SOD PHOSPHATE 4 MG/ML 1 ML VIAL IVP ONE (11:47)
[2023-02-01] MEDS ORDERED: ONDANSETRON 4 MG/2 ML VIAL IVP ONE (11:47)
[2023-02-01] MEDS ORDERED: LIDOCAINE 2% INJ 20 MG/ML (2 ML VIAL) ONE (13:11)
[2023-02-01] MEDS ORDERED: NEOSTIGMINE 1 MG/ML 10 ML VIAL ONE (13:11)
[2023-02-01] MEDS ORDERED: GLYCOPYRROLATE 0.2 MG/ML 2 ML VIAL ONE (13:11)
[2023-02-01] MEDS ORDERED: PROPOFOL 10 MG/ML 20 ML VIAL IV ONE (13:11)
[2023-02-01] MEDS ORDERED: ROCURONIUM 10 MG/ML (5 ML VIAL) IV ONE (13:11)
[2023-02-01] MEDS ORDERED: TRANEXAMIC ACID IN NACL,ISO-OS 1,000 MG/100 ML BAG ONE (13:11)
[2023-02-01] MEDS ORDERED: MIDAZOLAM 2 MG/2 ML VIAL ONE (13:11)
[2023-02-01] MEDS ORDERED: fentaNYL (PF) 50 MCG/ML 2 ML AMP ONE (13:11)
[2023-02-01] MEDS ORDERED: IOPAMIDOL M200 10 ML VIAL MISCELLANE ONE (13:29)
[2023-02-01] MEDS ORDERED: BUPIVACAIN-EPI 0.25%-1:200,000 30 ML VIAL SQ ONE ×2 (14:16)
--- NOTE | 2023-02-01 14:48 | P.PN ---
Progress Note - Text Progress Note Date: 02/01/23 Patient seen in PACU. Patient is awake and alert, she is answering questions. Patient denies any pain at this time. Pateint may be discharged once medically stable and cleared by anesthesia and PACU staff. Patient will follow up in office in 2 weeks.
[2023-02-01 14:52] VITALS: TEMP 97.4
--- NOTE | 2023-02-01 15:19 | FL ---
EXAMINATION TYPE: FL guidance operating room DATE OF EXAM: 02/01/2023 HISTORY: Fluoroscopy time Total dose area product (DAP) in ): 2.7896 IMPRESSION: 1. Fluoroscopy time.
[2023-02-01 15:34] VITALS: RESP 16
[2023-02-01] MEDS ORDERED: HYDROcodone/APAP 5-325MG 1 EACH TAB ONE (16:03)
[2023-02-01] MEDS ORDERED: ACETAMINOPHEN TAB 500 MG TAB ONE (16:07)
[2023-02-01] MEDS ORDERED: ACETAMINOPHEN TAB 500 MG TAB PO ONE (16:10)
[2023-02-01 16:11] VITALS: BP 153/68; PULSE 62
--- NOTE | 2023-02-04 11:56 | XR ---
EXAMINATION TYPE: XR thoracic spine 2V DATE OF EXAM: 02/01/2023 COMPARISON: NONE HISTORY: VERTEBRAL ABLATION WITH KYPHOPLSTY TECHNIQUE: 6 views submitted FINDINGS: Intraoperative images demonstrate compression deformity with subsequent vertebral plasty. IMPRESSION: 1. Intraoperative and postsurgical changes
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
== END 2023-02-01 17:11 | disposition home or self-care (01) ==
LOC: OR 10:52
PROVIDERS: ATTEND Orthopaedic Surgery
DX: M48.54XA Collapsed vertebra, not elsewhere classified, thoracic region, initial encounter for fracture (principal); K21.9 Gastro-esophageal reflux disease without esophagitis; E07.9 Disorder of thyroid, unspecified; Z85.3 Personal history of malignant neoplasm of breast; Z90.49 Acquired absence of other specified parts of digestive tract; Z87.891 Personal history of nicotine dependence; Z82.49 Family history of ischemic heart disease and other diseases of the circulatory system; Z88.2 Allergy status to sulfonamides; Z88.1 Allergy status to other antibiotic agents; Z79.899 Other long term (current) drug therapy
CPT/HCPCS: 86900; 86901; 86850; 72070; 22513; 20982; J1100; J0690; J2405; Q9966

== ENCOUNTER 2023-02-26 16:35 | Emergency (ER) | payer BC, MEDICARE ==
[2023-02-26 16:52] VITALS: RESP 18; TEMP 98.8
[2023-02-26 17:53] LABS: Basophils % (A) 0 %; Eosinophils % (A) 1 %; HCT 41.5 % (34.0-46.0); HGB 13.5 gm/dL (11.4-16.0); Lymphocytes # (A) 0.5 k/uL (1.0-4.8); Lymphocytes % (A) 10 %; MCH 26.3 pg (25.0-35.0); MCHC 32.5 g/dL (31.0-37.0); MCV 80.8 fL (80.0-100.0); Monocytes # (A) 0.3 k/uL (0-1.0); Monocytes % (A) 5 %; Neutrophils # (A) 4.2 k/uL (1.3-7.7); Neutrophils % (A) 81 %; Platelet Count 282 k/uL (150-450); RBC 5.14 m/uL (3.80-5.40); RDW 13.7 % (11.5-15.5); WBC 5.2 k/uL (3.8-10.6)
[2023-02-26 18:02] LABS: Partial Thromboplastin Time 24.6 sec (22.0-30.0); Prothrombin Time 10.6 sec (9.0-12.0)
[2023-02-26 18:03] LABS: ALT 16 U/L (4-34); AST 31 U/L (14-36); African American GFR (CKD) >90 (>60 ml/min/1.73 sqM); Albumin 3.9 g/dL (3.5-5.0); Alkaline Phosphatase 87 U/L (38-126); Anion Gap 6 mmol/L; Blood Urea Nitrogen 7 mg/dL (7-17); Calcium 8.8 mg/dL (8.4-10.2); Carbon Dioxide 33 mmol/L (22-30); Chloride 102 mmol/L (98-107); Glucose 118 mg/dL (74-99); Non-African American GFR(CKD) >90 (>60 ml/min/1.73 sqM); Potassium 3.3 mmol/L (3.5-5.1); Sodium 141 mmol/L (137-145); Total Bilirubin 0.5 mg/dL (0.2-1.3); Total Protein 6.7 g/dL (6.3-8.2)
[2023-02-26] MEDS ORDERED: KETOROLAC 15 MG/ML 1 ML VIAL IVP STA (19:00)
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
--- NOTE | 2023-02-26 20:06 | XR ---
EXAMINATION TYPE: XR chest 2V DATE OF EXAM: 02/26/2023 COMPARISON: 01/09/2022 INDICATION: Chest pain TECHNIQUE: Frontal and lateral views of the chest are obtained. FINDINGS: The heart size is normal. The pulmonary vasculature is prominent. Some atelectasis is suspected along the diaphragm on the lateral projection.. Vertebral plasty is within the lower thoracic spine. There is exaggeration of thoracic kyphosis. IMPRESSION: 1. Suspected platelike atelectasis posterior lung lateral view. 2. Prominence of pulmonary vascular markings. Correlate for volume overload
--- NOTE | 2023-02-26 20:44 | CT ---
CT CHEST FOR PULMONARY EMBOLISM. EXAMINATION TYPE: CT chest angio for PE DATE OF EXAM: 02/26/2023 INDICATION: Positve D-dimer. CT DLP: 348.5 mGycm, Automated exposure control for dose reduction was used. CONTRAST: Patient injected with 100cc mL of Isovue 370. COMPARISON: None TECHNIQUE: CT of the chest is performed on a spiral scan at 2 mm thick sections. Study is performed with intravenous contrast timed for evaluation for pulmonary embolism. This will limit additional po rtions of the evaluation. FINDINGS: No persistent filling defects are evident to suggest an acute pulmonary embolism. No mediastinal or hilar adenopathy enlarged by CT criteria is evident. Small hilar lymph nodes. The ascending aorta diameter at the level of the main pulmonary artery is 3.2 cm. The main pulmonary ar rashmi diameter at the bifurcation is 2.8 cm. There may be some pulmonary fibrosis at the lung bases. Limited CT section through the upper abdomen are unremarkable. IMPRESSIONS: 1. No acute pulmonary embolism. 2. There may be some mild pulmonary fibrosis present. 3. Moderate ascites hiatal hernia.
[2023-02-26] MEDS ORDERED: CYCLOBENZAPRINE 10 MG TAB PO STA (21:20)
[2023-02-26 22:24] VITALS: BP 135/84; PULSE 65
== END 2023-02-26 22:24 | disposition home or self-care (01) ==
LOC: EC 16:35
DX: M54.9 Dorsalgia, unspecified (principal); R07.89 Other chest pain; K44.9 Diaphragmatic hernia without obstruction or gangrene; R18.8 Other ascites; K21.9 Gastro-esophageal reflux disease without esophagitis; E07.9 Disorder of thyroid, unspecified; F41.9 Anxiety disorder, unspecified; Z87.891 Personal history of nicotine dependence; Z79.890 Hormone replacement therapy; Z79.899 Other long term (current) drug therapy; Z88.2 Allergy status to sulfonamides
CPT/HCPCS: 36415; 93005; 85379; 80053; 84484; 85025; 85610; 85730; 71046; 71275; 99285; 96374; J1885; Q9967

== ENCOUNTER → 2023-03-20 | Outpatient (CLI) | payer BC, MEDICARE ==
[2023-03-20 15:34] VITALS: BP 132/85; PULSE 72; RESP 18; TEMP 98.9
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
== END ==
LOC: WWCWWP 15:12
PROVIDERS: ATTEND Surgery
DX: C50.911 Malignant neoplasm of unspecified site of right female breast (principal); N65.1 Disproportion of reconstructed breast; E03.9 Hypothyroidism, unspecified; K21.9 Gastro-esophageal reflux disease without esophagitis; Z87.19 Personal history of other diseases of the digestive system; Z79.890 Hormone replacement therapy; Z80.3 Family history of malignant neoplasm of breast; Z85.3 Personal history of malignant neoplasm of breast; Z88.2 Allergy status to sulfonamides; Z87.891 Personal history of nicotine dependence; Z17.0 Estrogen receptor positive status [ER+]

== ENCOUNTER 2023-04-16 07:00 | Day surgery (SDC) | payer BC, MEDICARE ==
[2023-04-10 13:58] VITALS: BMI 26.2
[~2023-04-16 07:00] MED LIST changes: -ACETAMINOPHEN TAB 500 MG TAB PO PRN; +DEXAMETHASONE SOD PHOSPHATE 4 MG/ML 1 ML VIAL IV ONE; -GABAPENTIN 300 MG CAP PO PRN; +HEPARIN SODIUM,PORCINE/PF 5,000 UNIT/0.5 ML SYRINGE SQ PRN; +HYDROmorphone 0.5 MG/0.5 ML SYRINGE IVP PRN; +LACTATED RINGERS 1,000 ML IV SCH; +LIDOCAINE 1% (10MG/ML) FOR IV START INTRADERMA PRN; -MELOXICAM 7.5 MG TAB PO PRN; +ONDANSETRON 4 MG/2 ML VIAL IVP ONE; +Pre Op ABX Message 1 EACH MISC MISCELLANE ONE; -TRANEXAMIC ACID IN NACL,ISO-OS 1,000 MG in SALINE 1 100ML.BAG IVPB PRN; +droPERidol 5 MG/2 ML VIAL IVP ONE
[2023-04-16] MEDS ORDERED: ePHEDrine 50 MG/ML 1 ML VIAL ONE (08:16)
[2023-04-16] MEDS ORDERED: ROCURONIUM 10 MG/ML (5 ML VIAL) IV ONE (08:16)
[2023-04-16] MEDS ORDERED: LIDOCAINE 2% INJ 20 MG/ML (2 ML VIAL) ONE (08:16)
[2023-04-16] MEDS ORDERED: PROPOFOL 10 MG/ML 20 ML VIAL IV ONE (08:16)
[2023-04-16] MEDS ORDERED: fentaNYL (PF) 50 MCG/ML 2 ML AMP ONE (08:16)
[2023-04-16] MEDS ORDERED: MIDAZOLAM 2 MG/2 ML VIAL ONE (08:16)
[2023-04-16] MEDS ORDERED: SUCCINYLCHOLINE CHLORIDE 200 MG/10 ML VIAL IV ONE (08:16)
[2023-04-16] MEDS ORDERED: SODIUM CHLORIDE 0.9% 50 ML with ceFAZolin 2,000 MG IV ONE ×2 (08:21)
--- NOTE | 2023-04-16 11:26 | P.OP ---
Date of Procedure: 04/16/23 Preoperative Diagnosis: Macromastia of the left breast with asymmetry secondary to right breast lumpectomy for cancer Postoperative Diagnosis: Same Procedure(s) Performed: Left breast reduction mammoplasty Anesthesia: TAO Surgeon: Trinity Merida Estimated Blood Loss (ml): 20 IV fluids (ml): 500 Pathology: other (Breast tissue, weight approximately 200 g) Condition: stable Disposition: same day Indications for Procedure: Macromastia, breast asymmetry secondary to prior right breast reduction lumpectomy for cancer, back pain Operative Findings: Fibrofatty breast tissue Description of Procedure: The patient is a 60-year-old white female status post breast reduction mammoplasty for a lumpectomy for cancer of the right breast. As a result of treatment for the cancer she has marked asymmetry of the breasts. Additionally she also has back pain related to macromastia. She is therefore going to undergo a left breast reduction mammoplasty. In the preoperative area Jacobo Pattern Reduction mammoplasty markings were placed. The patient was then brought to the operative suite. Following induction of anesthesia both breasts were prepped and draped in a sterile fashion. The left breast inferior pedicle markings were utilized to de- epithelialized the inferior pedicle. Prior to this a #38 cookie cutter was used to delineate the area for the new nipple areolar complex. This was matched to the right nipple areolar complex. Following the de-epithelialization incisions were made to form the inferior pedicle and removed the medial and lateral triangle of skin and breast tissue for the reduction. Dissection was performed posteriorly onto the chest wall. The medial and lateral flaps were developed using the electrocautery device. Following this the areola at the 12 o'clock position was marked using a nylon suture. The wound was well irrigated. Surgicel in powder form was placed. After we were assured that hemostasis was attained The flaps were brought together and sutured. This was done over the nipple areolar complex. The nylon suture marking the 12 o'clock position of the nipple areolar complex was brought through the apex of the vertical limb of the reduction mammoplasty incision. The subcutaneous tissue was closed with a Vicryl suture. This was followed by closure of the subcuticular tissue with 4-0 Monocryl. At this point using the 38 cookie cutter at the apex of the vertical incision markings were made for the new location of the nipple areolar complex. The skin and subcutaneous tissue was removed. The nipple areolar complex was brought out through the opening. This was secured using 3-0 Vicryl suture in the subcutaneous tissue. 4-0 subcuticular Monocryl suture was placed. Prior to closure of the flaps a #10 JADE drain was placed laterally. The incisions were all oversewn with a 4-0 nylon suture. The drain was secured using a 3-0 nylon suture. The patient tolerated the procedure in stable condition. All instrument and sponge counts were correct at the end of the case.
--- NOTE | 2023-04-16 11:29 | P.DS ---
Providers Attending physician: Trinity Merida Primary care physician: Mine Shine Plan - Discharge Summary Discharge Rx Participant: No New Discharge Prescriptions: New HYDROcodone/APAP 5-325MG [[place] 5] 1 - 2 each PO Q6HR PRN #20 tab PRN Reason: Pain No Action Citalopram Hydrobromide [Citalopram HBr] 20 mg PO QAM Levothyroxine Sodium [Synthroid] 100 mcg PO QAM Famotidine [Pepcid] 20 mg PO BID Cyclobenzaprine [Flexeril] 10 mg PO TID PRN #15 tab PRN Reason: Muscle Spasm Pantoprazole [Protonix] 40 mg PO QAM Acetaminophen [Tylenol Extra Strength] 500 mg PO QID PRN #42 tablet PRN Reason: Pain Gabapentin 300 mg PO QAM Discharge Medication List Citalopram Hydrobromide [Citalopram HBr] 20 mg PO QAM 05/10/15 [History] Levothyroxine Sodium [Synthroid] 100 mcg PO QAM 04/18/16 [History] Famotidine [Pepcid] 20 mg PO BID 01/28/23 [History] Pantoprazole [Protonix] 40 mg PO QAM 01/28/23 [History] Acetaminophen [Tylenol Extra Strength] 500 mg PO QID PRN #42 tablet 02/01/23 [Rx] Cyclobenzaprine [Flexeril] 10 mg PO TID PRN #15 tab 02/26/23 [Rx] Gabapentin 300 mg PO QAM 04/10/23 [History] HYDROcodone/APAP 5-325MG [[place] 5] 1 - 2 each PO Q6HR PRN #20 tab 04/16/23 [Rx] Follow up Appointment(s)/Referral(s): Trinity Merida MD [STAFF PHYSICIAN] - 3 Days Activity/Diet/Wound Care/Special Instructions: wear bra at all times teach drain care; drain and record BID and as needed to bring results to appointment post-op do not drive until seen by Dr. Robles or if taking narcotic pain medicine may shower after 48 hours Discharge Disposition: HOME SELF-CARE
[2023-04-16 11:42] VITALS: TEMP 97.8
[2023-04-16 12:46] VITALS: RESP 16
[2023-04-16] MEDS ORDERED: LACTATED RINGERS 1,000 ML IV ONE (12:50)
[2023-04-16] MEDS ORDERED: HYDROcodone/APAP 5-325MG 1 EACH TAB ONE (13:23)
[2023-04-16] MEDS ORDERED: HYDROcodone/APAP 5-325MG 1 EACH TAB PO ONE (13:23)
[2023-04-16 13:53] VITALS: BP 110/65; PULSE 85
== END 2023-04-16 14:00 | disposition home or self-care (01) ==
LOC: OR 07:00
PROVIDERS: ATTEND Surgery
DX: N60.12 Diffuse cystic mastopathy of left breast (principal); N60.42 Mammary duct ectasia of left breast; K21.9 Gastro-esophageal reflux disease without esophagitis; E03.9 Hypothyroidism, unspecified; Z85.3 Personal history of malignant neoplasm of breast; Z80.3 Family history of malignant neoplasm of breast; Z90.49 Acquired absence of other specified parts of digestive tract; Z98.890 Other specified postprocedural states; Z87.891 Personal history of nicotine dependence; Z79.899 Other long term (current) drug therapy
CPT/HCPCS: 88305; 19318; J2250; J0330; J1100; J2405; J0690; J3010; J2704; J1644; J2001

== ENCOUNTER → 2023-05-01 | Outpatient (CLI) | payer BC, MEDICARE ==
[2023-05-01 08:04] VITALS: BP 140/75; PULSE 62; RESP 18; TEMP 98.4
--- NOTE | 2023-05-01 08:22 | P.PN ---
Progress Note - Text Progress Note Date: 05/01/23 Progress Note - Text Progress Note Date: 04/26/23 Melissa is a 68 year old white female status post left breast reduction mammoplasty on 04-16-23. Postoperatively she has done well. Physical exam: Lungs: Clear Heart: Regular rate and rhythm Incision clean and dry Impression: Patient doing well Plan: bilagteral mammogram with appointment at that time CC: Malissa Additional CC's: Mine Shine
== END ==
LOC: WWCWWP 07:47
PROVIDERS: ATTEND Surgery
DX: Z04.9 Encounter for examination and observation for unspecified reason (principal); Z85.3 Personal history of malignant neoplasm of breast; Z88.2 Allergy status to sulfonamides; Z87.891 Personal history of nicotine dependence

== ENCOUNTER → 2023-08-12 | Outpatient (CLI) | payer BC, MEDICARE ==
--- NOTE | 2023-08-12 09:41 | MM ---
Reason for Exam: Follow-up at short interval from prior study. Last mammogram was performed 1 year(s) and 1 month(s) ago. Patient History: Menarche at age 12. First Full-Term at age 23. Postmenopausal. Patient has history of breast feeding. Breast cancer, right, age 67. 11/06/2022, Lumpectomy on the Right side. 11/06/2022, Benign MG pre op needle loc RT on the right side. 09/14/2022, Malignant MG stereo VAD BX RT on the right side. 1989, Benign Excisional Biopsy on the right side. Maternal aunt had breast cancer, age 60. Mother had breast cancer, age 60. Prior Study Comparison: 07/21/1996 Screening Mammogram, Unknown. 03/08/2015 Bilateral Screening Mammogram, [facility]. 03/16/2015 Right Diagnostic Mammogram, [facility]. 03/16/2015 Right Diagnostic Ultrasound, [facility]. 09/19/2015 Right Diagnostic Mammogram, [facility]. 05/14/2019 Bilateral Screening Mammogram, [facility]. 07/30/2022 Bilateral MG screening mammo w CAD, [facility]. 08/07/2022 Right MG work up mamm w CAD RT, [facility]. Tissue Density: There are scattered fibroglandular densities. Findings: Analyzed By CAD. Right breast is slightly smaller than left. Multiple surgical clips are within the right breast. There is some thickening through the anterior right breast couple of benign calcifications are within the left breast. Some postsurgical change reduction is evident. No suspicious groups of microcalcifications, spiculated or lobular masses, architectural distortion or other secondary signs of malignancy are mammographically apparent. Overall Assessment: Benign, BI-RAD 2 Management: Diagnostic Mammogram of both breasts in 1 year. A negative mammogram report should not preclude additional follow up of suspicious palpable abnormalities. Patient should continue monthly self breast exam. A clinical breast exam by your physician is recommended on an annual basis and results should be correlated with mammographic findings. Electronically signed and approved by: Dimas Small D.O. Radiologis
== END | disposition home or self-care (01) ==
LOC: RADMAMWWP 08:47
PROVIDERS: ATTEND Surgery
DX: Z53.9 Procedure and treatment not carried out, unspecified reason (principal)

== ENCOUNTER → 2023-08-15 | Outpatient (CLI) | payer BC, MEDICARE ==
[2023-08-15 08:55] VITALS: BP 155/84; PULSE 69; RESP 18; TEMP 98.7
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
== END | disposition home or self-care (01) ==
LOC: WWCWWP 08:36
PROVIDERS: ATTEND Surgery
DX: Z01.818 Encounter for other preprocedural examination (principal); K21.9 Gastro-esophageal reflux disease without esophagitis; J43.9 Emphysema, unspecified; E03.9 Hypothyroidism, unspecified; F41.9 Anxiety disorder, unspecified; Z79.811 Long term (current) use of aromatase inhibitors; Z80.3 Family history of malignant neoplasm of breast; Z90.49 Acquired absence of other specified parts of digestive tract; Z87.891 Personal history of nicotine dependence; Z88.2 Allergy status to sulfonamides; Z88.1 Allergy status to other antibiotic agents; Z79.891 Long term (current) use of opiate analgesic

== ENCOUNTER 2023-08-23 12:01 | Day surgery (SDC) | payer BC, MEDICARE ==
[2023-08-21 10:10] VITALS: BMI 26.2
[~2023-08-23 12:01] MED LIST changes: -DEXAMETHASONE SOD PHOSPHATE 4 MG/ML 1 ML VIAL IV ONE; -HEPARIN SODIUM,PORCINE/PF 5,000 UNIT/0.5 ML SYRINGE SQ PRN; -HYDROmorphone 0.5 MG/0.5 ML SYRINGE IVP PRN; -LACTATED RINGERS 1,000 ML IV SCH; -ONDANSETRON 4 MG/2 ML VIAL IVP ONE; -Pre Op ABX Message 1 EACH MISC MISCELLANE ONE; -droPERidol 5 MG/2 ML VIAL IVP ONE
[2023-08-23] MEDS: LACTATED RINGERS 1,000 ML IV SCH ×2 (13:00→13:52)
[2023-08-23] MEDS ORDERED: ONDANSETRON 4 MG/2 ML VIAL ONE (13:02)
[2023-08-23] MEDS ORDERED: ONDANSETRON 4 MG/2 ML VIAL IVP ONE (13:05)
[2023-08-23 13:10] VITALS: TEMP 98.3
[2023-08-23] MEDS ORDERED: PROPOFOL 10 MG/ML 20 ML VIAL IV ONE (13:53)
[2023-08-23] MEDS ORDERED: LIDOCAINE 1% INJ 10MG/ML (20 ML MDV) ONE (13:53)
--- NOTE | 2023-08-23 14:11 | P.PCN ---
Date of Procedure: 08/23/23 Procedure(s) Performed: BRIEF HISTORY: Patient is a 68-year-old, pleasant, female scheduled for an upper endoscopy as a part of evaluation of severe epigastric discomfort and heartburn for the last few months duration.. Is presently on Protonix 40 mg daily and Pepcid 20 mg twice daily with no help. PROCEDURE PERFORMED: Esophagogastroduodenoscopy with biopsy. PREOPERATIVE DIAGNOSIS: Epigastric pain and heartburn. IV sedation per anesthesia. PROCEDURE: After informed consent was obtained, the patient was brought into the endoscopy unit. IV sedation was administered by Anesthesia under continuous monitoring. Initially the Olympus GIF-140 video endoscope was inserted into the mouth. Esophagus intubated without any difficulty. It was gradually advanced into the stomach and duodenum and carefully examined. The bulb and the second part of the duodenum appeared normal. The scope at this time was withdrawn to the stomach, adequately insufflated with air, and upon careful examination, mucosa of the antrum, diffuse gastritis and biopsies were done from this area. Mucosa of the body, cardia and the fundus appeared normal. The scope was then withdrawn into the esophagus. Small to moderate size hiatal hernia noted. The GE junction was located at 30 cm from the incisors. There was circumferential ulceration at the GE junction consistent with severe reflux esophagitis. Mucosa in this area appeared friable and hence part biopsies were done from this area. The rest of the esophagus appeared normal. The patient tolerated the procedure well. IMPRESSION: 1. Circumferential ulceration at the GE junction located at 30 cm from the incisors consistent with severe reflux esophagitis. 2. Small to moderate size hiatal hernia 3. Diffuse antral gastritis. RECOMMENDATIONS: The findings of this examination were discussed with the patient as well as a family. She was advised to increase her Protonix to 40 mg twice daily and Pepcid at bedtime and follow antireflux measures. Follow up in office in 3-4 weeks..
[2023-08-23 14:54] VITALS: BP 148/79; PULSE 69; RESP 17
== END 2023-08-23 15:02 | disposition home or self-care (01) ==
LOC: ORWHC2ENDO 12:01
PROVIDERS: ATTEND Internal Medicine Gastroenterology
DX: K29.50 Unspecified chronic gastritis without bleeding (principal); K21.00 Gastro-esophageal reflux disease with esophagitis, without bleeding; K44.9 Diaphragmatic hernia without obstruction or gangrene; E03.9 Hypothyroidism, unspecified; F41.9 Anxiety disorder, unspecified; Z88.2 Allergy status to sulfonamides; Z87.891 Personal history of nicotine dependence; Z79.899 Other long term (current) drug therapy
CPT/HCPCS: 43239; J2405; 88305; 88312

== ENCOUNTER → 2024-01-09 | Outpatient (CLI) | payer MEDICARE ==
[2024-01-09 15:02] VITALS: BP 136/70; PULSE 45; RESP 16; TEMP 98
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
== END ==
LOC: WWCWWP 13:28
PROVIDERS: ATTEND Surgery
DX: R92.1 Mammographic calcification found on diagnostic imaging of breast (principal); N63.15 Unspecified lump in the right breast, overlapping quadrants; N64.89 Other specified disorders of breast; D64.9 Anemia, unspecified; M85.80 Other specified disorders of bone density and structure, unspecified site; Z80.3 Family history of malignant neoplasm of breast; Z92.3 Personal history of irradiation; Z88.1 Allergy status to other antibiotic agents; Z88.2 Allergy status to sulfonamides; Z87.891 Personal history of nicotine dependence

== ENCOUNTER → 2024-02-26 | Outpatient (CLI) | payer MEDICARE ==
[2024-02-26 12:36] VITALS: BP 127/79; PULSE 67; RESP 17; TEMP 97.9
--- NOTE | 2024-02-26 12:39 | P.PCN ---
Date of Procedure: 02/26/24 Preoperative Diagnosis: right breast nodularity at 12:00 Postoperative Diagnosis: same Procedure(s) Performed: right breast core biopsy Anesthesia: local Surgeon: Trinity Merida Pathology: other (breaset tissue) Condition: stable Disposition: same day Indications for Procedure: nodularity 12:00 right breast periaerolar area Operative Findings: dense breast tissue Description of Procedure: Following informed consent the area of concern was prepped using chlorhexidine. He was used to anesthetize the area of the skin. A 12-gauge vacuum-assisted core biopsy needle was inserted into the area of concern. 2 specimens were obtained. The specimens are sent to pathology. The patient will call for results in two weeks, if this is benign she will have a blateral mammogram in June with an appointment at that time. She will follow up sooner if she has any concerns.
== END ==
LOC: WWCWWP 11:37
PROVIDERS: ATTEND Surgery
DX: N63.15 Unspecified lump in the right breast, overlapping quadrants (principal); Z88.2 Allergy status to sulfonamides; Z88.1 Allergy status to other antibiotic agents; Z87.891 Personal history of nicotine dependence
CPT/HCPCS: 88305

== ENCOUNTER → 2024-09-18 | Outpatient (CLI) | payer MEDICARE ==
--- NOTE | 2024-09-18 10:23 | MM ---
Reason for Exam: Follow-up at short interval from prior study. Last mammogram was performed 1 year(s) and 1 month(s) ago. Patient History: Menarche at age 12. First Full-Term at age 23. Postmenopausal. Patient has history of breast feeding. Breast cancer, right, age 67. 11/06/2022, Lumpectomy on the Right side. 11/06/2022, Benign MG pre op needle loc RT on the right side. 09/14/2022, Malignant MG stereo VAD BX RT on the right side. 1989, Benign Excisional Biopsy on the right side. Maternal aunt had breast cancer, age 60. Mother had breast cancer, age 60. Tissue Density: The breasts are heterogeneously dense, which may obscure small masses. Findings: Analyzed By CAD. The pattern is stable At the 3:00 middle to posterior position left breast there is a 0.4 cm nodular density with circumscribed margins located 7 cm nipple. Ultrasound recommended. This is a new finding. No suspicious groups of microcalcifications, spiculated or lobular masses, architectural distortion or other secondary signs of malignancy are mammographically apparent. Overall Assessment: Incomplete: need additional imaging evaluation, BI-RAD 0 Management: Diagnostic Breast Ultrasound of the left breast. A negative mammogram report should not preclude additional follow up of suspicious palpable abnormalities. Patient should continue monthly self breast exam. A clinical breast exam by your physician is recommended on an annual basis and results should be correlated with mammographic findings. Note on So scores and lifetime risk: 1. A So score greater than 3% is considered moderate risk. If this is the case, consider specialist referral to assess eligibility for a risk reducing agent. 2. If overall lifetime risk for the development of breast cancer is 20% or higher, the patient may qualify for future screening with alternating mammogram and breast MRI. [facility], , 09/18/2024 10:20 AM. Electronically signed and approved by: Dimas Small D.O. Radiologis
--- NOTE | 2024-09-18 11:46 | USB ---
Reason for Exam: Additional evaluation requested from abnormal screening. Patient History: Menarche at age 12. First Full-Term at age 23. Postmenopausal. Patient has history of breast feeding. Breast cancer, right, age 67. 11/06/2022, Lumpectomy on the Right side. 11/06/2022, Benign MG pre op needle loc RT on the right side. 09/14/2022, Malignant MG stereo VAD BX RT on the right side. 1989, Benign Excisional Biopsy on the right side. Maternal aunt had breast cancer, age 60. Mother had breast cancer, age 60. Technique: Method: Targeted. Prior Study Comparison: 07/30/2022 Bilateral MG screening mammo w CAD, [facility]. 08/07/2022 Right MG work up mamm w CAD RT, [facility]. 08/12/2023 Bilateral MG 3D diag mammo w/cad PAULA, [facility]. Findings: The axilla of the left breast and the retroareolar of the left breast were scanned. In the 3:00 position 4 cm from the nipple there is a 0.4 x 0.4 x 0.3 cm hypoechoic area with posterior wall enhancement. There appears to be a septation in the midline. This too small to classify as a simple cyst. Short-term follow-up can be performed. This area is somewhat short of the expected region mammogram. Additional nodule on the mammogram tomographic images may be in the subareolar position. However this is 2.4 cm from nipple is not clearly correlate with this finding either. Short-term follow-up with mammography and ultrasound is recommended. Overall Assessment: Probably benign, BI-RAD 3 Management: Diagnostic Mammogram of the left breast in 3 months. Diagnostic Breast Ultrasound of the left breast in 3 months. A clinical breast exam by your physician is recommended on an annual basis and results should be correlated with mammographic findings. This exam should not preclude additional follow-up of suspicious palpable abnormalities. Results were given to the patient verbally at the time of exam. [facility], , 09/18/2024 11:21 AM. Electronically signed and approved by: Dimas Small D.O. Radiologis
== END | disposition home or self-care (01) ==
LOC: RADMAMWWP 09:53
PROVIDERS: ATTEND Surgery
DX: Z85.3 Personal history of malignant neoplasm of breast (principal); Z78.0 Asymptomatic menopausal state; Z80.3 Family history of malignant neoplasm of breast; R92.333 Mammographic heterogeneous density, bilateral breasts
CPT/HCPCS: 77066; 76642; G0279; 77062